=== PATIENT | male | born 1960 | race Caucasian/White ===

== ENCOUNTER 2019-11-08 16:23 | Outpatient (CLI) | payer OTHER, SELFPAY ==
--- NOTE | ~2019-11-08 | XR_ITS ---
XR wrist RT min 3V DATE: 11/08/2019 16:44 INDICATION: Pop, pain at radial aspect of wrist TECHNIQUE: 4 views COMPARISON: 02/17/2017 right hand FINDINGS: Osteoarthritic change at the interphalangeal joint of the first digit. There is minimal osteoarthritis at the first carpometacarpal joint. There is a small linear lucency along the radial aspect of the distal radial epiphysis, not evident o n 02/17/2017 right hand radiograph, which may represent a small cortical avulsion fracture of undeterm ined age. Otherwise no fracture or dislocation, periosteal reaction or bone destruction or chondrocalcinosis. N o erosive change is evident. IMPRESSION: Possible small cortical avulsion fracture of undetermined age of the lateral epiphyseal a danae of the distal radius; recommend clinical correlation for point tenderness Osteoarthritis Reviewed, dictated and finalized at location B. IMPRESSION: Possible small cortical avulsion fracture of undetermined age of th e lateral epiphyseal area of the distal radius; recommend clinical correlation for point tenderness Osteoarthritis
== END 2019-11-08 16:24 | disposition home or self-care (01) ==
PROVIDERS: PCP Family Medicine; Visit Provider Nurse Practitioner Family
DX: M25.531 Pain in right wrist (principal)
CPT/HCPCS: 73110

== ENCOUNTER 2020-06-08 09:46 | Outpatient (CLI) | payer OTHER, MEDICAID, SELFPAY ==
--- NOTE | ~2020-06-08 | XR_ITS ---
EXAMINATION:XR_CERV2-3V_CR DATE: 06/08/2020 10:21 INDICATION: Cervical radiculopathy TECHNIQUE: AP, lateral, lateral swimmers and odontoid views of the cervical spine are provided. COMPARISON: None FINDINGS: Alignment is normal. The odontoid is intact. No fracture is identified. There is mild loss of intervertebral disc space height at C5-6 and C6-7. Prevertebral soft tissues are normal. Small deg enerative osteophytes project from the anterior endplates of multiple vertebral bodies. There is mild facet osteoarthritis. IMPRESSION: 1. Mild cervical spondylosis without acute findings. Reviewed, dictated and finalized at location A.
--- NOTE | ~2020-06-08 | XR_ITS ---
XR shoulder RT min 2V DATE: 06/08/2020 10:20 INDICATION: Right shoulder pain for 2 days TECHNIQUE: 4 views COMPARISON: None FINDINGS: 2 anchor devices overlie the right humeral head. No fracture or dislocation, periosteal reaction or bone destruction. There is mild joint space narrowing and spurring at the acromioclavicular joint. IMPRESSION: Mild degenerative change at the right acromioclavicular joint Postoperative change of the right humeral head Reviewed, dictated and finalized at location A.
== END 2020-06-08 09:47 | disposition home or self-care (01) ==
LOC: CHSIMG 09:48
PROVIDERS: PCP Family Medicine; Visit Provider Family Medicine
DX: M25.511 Pain in right shoulder (principal); M54.12 Radiculopathy, cervical region
CPT/HCPCS: 72040; 73030

== ENCOUNTER 2020-09-12 06:18 | Emergency (ER) | payer BC, SELFPAY ==
--- NOTE | ~2020-09-12 | CT_ITS ---
EXAMINATION: CT soft tissue neck w con EXAM DATE: 09/12/2020 07:51 INDICATION: RT neck pain and pressure w/inability to turn neck L or R x3days. Dysphagia. TECHNIQUE: Spiral CT of the neck was performed following intravenous injection of 75 mL Omnipaque 350 . Axial, coronal and sagittal images were reviewed. The dose-length product (DLP) for this examinat ion was 603.88 mGy-cm. The exposure was tailored according to patient size (auto mA exposure control ), and iterative reconstruction (ASIR) was used as additional dose reduction technique. There is no prior study for comparison. FINDINGS: There is a 5 mm nodule in the right lung apex on image 37. The thyroid gland is unremarkab le. The submandibular and parotid glands are symmetric. There is no cervical lymphadenopathy. Th ere are no masses identified. The superior mediastinum is unremarkable. The airway is unremarkab le. Parapharyngeal and pre-glottic fat planes are preserved. There is mild bilateral carotid bulb arterial sclerosis without stenosis. The orbits are unremarkable. Mild ethmoid mucoperiosteal thi ckening, no sinus air-fluid levels. Mastoid air cells are well aerated. There is moderate lower cerv ical disc disease and overall mild to moderate cervical arthropathy. No endplate erosive change or pa raspinal abnormality identified. Prevertebral soft tissue and pre-dens space are within normal limits . There are no areas of abnormal enhancement on the post contrast images. IMPRESSION: Incidental right upper lobe nodule; consider 6-12 month follow-up low-dose chest CT. No a cute neck findings. Reviewed, dictated and finalized at location B. LOADER IMPRESSION: Incidental right upper lobe nodule; consider 6-12 month follow-up l ow-dose chest CT. No acute neck findings.
[2020-09-12 06:37] VITALS: BP 150/89; PULSE 84; RESP 18; TEMP 36.6; O2SAT 100
--- NOTE | 2020-09-12 06:38 | ED.NECK ---
HPI - Neck Pain/Injury General Chief Complaint: Neck Pain/Injury Stated Complaint: pain in neck Time Seen by Provider: 09/12/20 06:39 Source: patient and RN notes reviewed Mode of arrival: ambulatory Limitations: no limitations History of Present Illness complaint: neck pain Onset (ago): day(s) (2) Place: home Severity: moderate and intermittent Quality: dull, aching and spasming Duration: intermittent Relieving factors: none Exacerbating factors: movement of neck and swallowing Associated symptoms: difficulty swallowing Treatments prior to arrival: none Related Data Home Medications Medication Instructions Recorded Confirmed losartan-hydrochlorothiazide 1 tablet PO DAILY 09/12/20 09/12/20 naproxen 500 mg PO PRN PRN 09/12/20 09/12/20 tramadol 50 mg PO PRN PRN 09/12/20 09/12/20 Allergies Allergy/AdvReac Type Severity Reaction Status Date / Time Penicillins Allergy Unknown Unknown Verified 05/24/20 11:00 [facility] Past Medical History Medical History Carpal tunnel syndrome of left wrist De Quervain's tenosynovitis, left Extensor tenosynovitis of right wrist Family History Family History Father Diabetes mellitus Social History Social History Smoking status: Current every day smoker Tobacco type: e-cigarettes/vaping Additional smoking assessment comments: One pack per day times 30 years has been vaping for the last 5 years. Alcohol intake: current Drinks per week: 15 Substance use: never Exam Const: General: healthy appearing and no acute distress Nutritional Appearance: well nourished and obese centrally obese Orientation/consciousness: patient oriented x3 HENMT: Head: normal to inspection Ears: external ears normal and TM's normal bilaterally General nose exam: Normal external nose present Face and sinus: normal facial exam Mouth: Yes Normal oral and palatal mucosa present and Yes lip normal Throat: posterior oropharynx normal Eyes: Conjunctivae: conjunctivae normal Pupils: Equal, round and reactive pupils present EOM: EOMs intact bilaterally Neck: Neck: no meningeal signs and lymphadenopathy right anterior cervical Resp: Effort & Inspection: normal respiratory effort Auscultation: clear to auscultation bilaterally Cardio: Rate: regular rate Rhythm: regular rhythm GI: GI Palp: Yes Soft to palpation Auscultation: normal bowel sounds Back/Spine/Pelvis: Cervical Spine: cervical muscular tenderness and pain with cervical ROM Thoracic/Lumbar Spine: thoraco-lumbar ROM normal Other: patient has stiffness to his neck he is able to move to the left but it causes pain not able to turn his head to the right. Pain with palpation on the right soft tissue around the posterior auricle. Skin: General skin exam: normal color Rashes: no rashes Neuro: General: patient oriented x3 and moves all extremities Speech: normal speech Gait exam (Neuro): Normal gait present Extrem: General: normal to inspection and no clubbing, cyanosis or edema Psych: Appearance: grossly normal and well kempt Mental Status: mental status grossly normal Affect: normal affect Attitude: cooperative Thought content: Yes Normal thought content present Course Vital Signs Vital signs: Vital Signs Temperature 36.6 C 09/12/20 06:37 Pulse Rate 84 09/12/20 06:37 Respiratory Rate 18 09/12/20 06:37 Blood Pressure 150/89 H 09/12/20 06:37 Pulse Oximetry 100 09/12/20 06:37 Temperature 36.6 C 09/12/20 06:37 Pulse Rate 70 09/12/20 08:47 Respiratory Rate 18 09/12/20 08:47 Blood Pressure 122/62 09/12/20 08:47 Pulse Oximetry 96 09/12/20 08:47 MDM - Neck Pain/Injury Lab Data Result diagrams: 09/12/20 07:01 09/12/20 07:01 Labs: Lab Results 09/12/20 09/12/20 09/12/20 Range/Units 07:01 07:01 07:01 WBC
[2020-09-12 07:07] LABS: Basophils Absolute Auto 0.06 K/mm3 (0.00-0.10); Basophils Percent Auto 0.7 % (0.0-1.0); Eosinophils Absolute Auto 0.34 K/mm3 (0.02-0.50); Eosinophils Percent Auto 4.2 % (1.0-6.0); Hematocrit 42.7 % (40.0-54.0); Hemoglobin 14.5 g/dL (14.0-18.0); Immature Granulocyte Absolute 0.05 K/mm3 (0.00-0.00); Immature Granulocyte Percent A 0.6 % (0.0-0.0); Lymphocytes Absolute Auto 1.61 K/mm3 (1.10-4.50); Lymphocytes Percent Auto 19.7 % (18.0-42.0); Mean Corpuscular Hemoglobin 32.1 pg (27.0-31.0); Mean Corpuscular Volume 94.5 fL (78.0-102.0); Mean Platelet Volume 9.7 fl (8.7-11.0); Monocytes Absolute Auto 0.82 K/mm3 (0.10-0.90); Neutrophils Absolute Auto 5.3 K/mm3 (1.7-7.2); Neutrophils Percent Auto 64.8 % (50.0-70.0); Platelet Count Result 228 K/mm3 (150-420); Red Blood Count 4.52 M/mm3 (4.70-6.10); White Blood Count 8.2 K/mm3 (4.8-10.8)
[2020-09-12 07:18] LABS: Anion Gap 6 mmol/L (8-16); Blood Urea Nitrogen 16 mg/dL (7-18); Calcium 8.7 mg/dL (8.5-10.1); Carbon Dioxide 30 mmol/L (21-32); Chloride 102 mmol/L (98-108); Estimated CRCL calculation 98 ml/min; Estimated Glomerular Filt Rate > 60; Glucose 110 mg/dL (70-99); Osmolality Calculated 288 mOsm/kg (285-295); Potassium 4.1 mmol/L (3.5-5.1); Sodium 138 mmol/L (136-145)
[2020-09-12 07:20] LABS: CRP 1.7 mg/dL (0.0-0.9)
[2020-09-12] MEDS: ORPHENADRINE CITRATE 100 MG TABLET.ER PO (08:13)
[2020-09-12] MEDS: KETOROLAC 30 MG/ML VIAL (*BKC) IV PUSH (08:14)
[2020-09-12] MEDS: DEXAMETHASONE SOD PHOS INJ 4 MG/ML VIAL 10 MG IV PUSH (08:14)
[2020-09-12 08:47] VITALS: BP 122/62; PULSE 70; RESP 18; O2SAT 96
--- NOTE | 2020-09-12 09:22 | ED.NECK ---
HPI - Neck Pain/Injury General Chief Complaint: Neck Pain/Injury Stated Complaint: pain in neck Time Seen by Provider: 09/12/20 06:39 Source: patient Mode of arrival: ambulatory Limitations: no limitations History of Present Illness HPI Narrative: Patient comes in with neck pain ongoing for two days. This has been associated with increased sharp pain when turning his neck to the right, and it seems to have started after sleeping nn his neck funny he says. Pain is moderately severe, ongoing, made worse with any movement, and decreases after not moving the neck. Rest decreases the discomfort which is sharp. MD complaint: neck pain Place: home Severity: moderate and intermittent Quality: sharp, aching and spasming Relieving factors: none Exacerbating factors: movement of neck and swallowing Associated symptoms: difficulty swallowing Treatments prior to arrival: acetaminophen Related Data Home Medications Medication Instructions Recorded Confirmed losartan-hydrochlorothiazide 1 tablet PO DAILY 09/12/20 09/12/20 naproxen 500 mg PO PRN PRN 09/12/20 09/12/20 tramadol 50 mg PO PRN PRN 09/12/20 09/12/20 Allergies Allergy/AdvReac Type Severity Reaction Status Date / Time Penicillins Allergy Unknown Unknown Verified 05/24/20 11:00 Review of Systems Constitutional: Constitutional: Reports no additional constitutional complaints Eyes: Eyes: Reports no additional eye complaints ENT: Reports system reviewed and no additional complaints, except as documented Cardiovascular: Cardiovascular: Reports no additional cardiovascular complaints Respiratory: Respiratory: Reports no additional respiratory complaints Gastrointestinal: Gastrointestinal: Reports no additional gastrointestinal complaints Genitourinary: Genitourinary: Reports no additional male genitourinary complaints Musculoskeletal: Musculoskeletal: Reports no additional musculoskeletal complaints Integumentary/Breasts: Skin/Breast: Reports system reviewed and no additional complaints, except as docu Neurologic: Reports system reviewed and no additional complaints, except as documented Psychiatric: Psychiatric: Reports no additional psychiatric complaints Endocrine: Endocrine: Reports no additional endocrine complaints Hematologic/Lymphatic: Hematologic/Lymphatic: Reports no additional hematologic/lymphatic complaints Allergic/Immunologic: Allergic/Immunologic: Reports no additional allergic/immunologic complaints [facility] Past Medical History Medical History Carpal tunnel syndrome of left wrist De Quervain's tenosynovitis, left Extensor tenosynovitis of right wrist Family History Family History Father Diabetes mellitus Social History Social History Smoking status: Current every day smoker Tobacco type: e-cigarettes/vaping Additional smoking assessment comments: One pack per day times 30 years has been vaping for the last 5 years. Alcohol intake: current Drinks per week: 15 Substance use: never Exam Const: Orientation/consciousness: patient oriented x3 HENMT: Head: normal to inspection Ears: external ears normal and TM's normal bilaterally General nose exam: Normal external nose present and Normal nares present Face and sinus: normal facial exam Other: He appears tight on the right side of his neck with the muscles there. He has no adenopathy that I can feel, just tight muscles. Eyes: Conjunctivae: conjunctivae normal Neck: Neck: normal visual inspection, no lymphadenopathy and no meningeal signs Other: tight neck muscles especially on right side. Chest: Chest palpation & inspection: normal inspection of the chest Resp: Effort & Inspection: normal respiratory effort Auscultation: clear to auscultation bilaterally and diminished lung sounds Cardio: Rate: regular rate Rhythm: regul
== END 2020-09-12 09:45 | disposition home or self-care (01) ==
PROVIDERS: Emergency Medicine; Emergency Provider Emergency Medicine; PCP Family Medicine
DX: M54.2 Cervicalgia (principal)
CPT/HCPCS: 36415; 70491; 80048; 85025; 86140; 96374; 96375; 99283; 99284; A9270; J1100; J1885; Q9965; Q9967

== ENCOUNTER 2021-05-26 15:54 | Emergency (ER) | payer BC, SELFPAY ==
--- NOTE | ~2021-05-26 | CT_ITS ---
EXAMINATION: CTA chest abdomen pelvis DATE: 05/26/2021 17:35 INDICATION: Abdominal aortic aneurysm presenting with chest and abdominal pain. TECHNIQUE: Computed tomographic angiography (CTA) of the chest, abdomen and pelvis was performed with 100 mL Omnipaque-350 intravenous contrast. Additional 3D reconstructions utilizing rotating maximum intensity projection (MIP) were performed. Automated exposure control and iterative reconstruction te chnique were employed. The dose-length product was 1984.49 mGy-cm. COMPARISON: None FINDINGS: Chest: Linear discoid atelectasis at the lingula and left lower lobe. 5-6 mm nodule in the right lower lobe and 5 mm segments spherical nodule along the left major fissure the lateral most likely an intrafissu ral lymph node. No pneumonia, pulmonary edema, pleural effusion or pneumothorax. Although not perform ed as a dedicated pulmonary embolism protocol there is relatively good contrast desiccation of the pu lmonary arteries demonstrating no pulmonary embolism. Heart size is normal. No pericardial effusion. Thoracic aorta is normal in caliber with no dissection. No pathologically enlarged thoracic lymphaden opathy. Mild wall thickening at the distal esophagus which could represent mild esophagitis. Mild tho racic spondylosis. With chronic appearing mild anterior wedging at T11 and T12. Abdomen and pelvis: Cholecystectomy clips at the gallbladder fossa. Diffuse hepatic steatosis. Spleen, pancreas, bilatera l adrenal glands and right kidney are normal. 1 mm and 2-3 mm nonobstructing stones at lower pole popeye yces of the left kidney. Bladder is normal. Prostatomegaly measuring 5.8 x 4.3 cm. Small amount of no nhemodynamically significant calcified atherosclerosis of the normal caliber abdominal aorta and bila teral iliac arteries. No dissection. Bowels including the appendix are normal. No free intraperitonea l gas or fluid. No pathologically enlarged abdominal or pelvic lymphadenopathy. Mild lumbar dextrocur vature with mild spondylosis. IMPRESSION: 1. Normal caliber aorta with no dissection. 2. Mild wall thickening at the distal esophagus which could be seen with esophagitis due to either in fection or reflux. 3. Diffuse hepatic steatosis. 4. Nonobstructing left nephrolithiasis. 5. Prostatomegaly. Reviewed, dictated and finalized at location A. IMPRESSION: 1. Normal caliber aorta with no dissection. 2. Mild wall thickening at the distal esophagus which could be seen with esopha gitis due to either infection or reflux. 3. Diffuse hepatic steatosis. 4. Nonobstructing left nephrolithiasis. 5. Prostatomegaly.
[2021-05-26 16:00] VITALS: BP 179/88; PULSE 70; RESP 20; TEMP 36.4; O2SAT 97
--- NOTE | 2021-05-26 16:22 | ECG_ITS ---
Measurements Intervals [place] Rate: 70 P: 74 NE: 214 QRS: -5 QRSD: 107 T: 24 QT: 353 QTc: 381 Interpretive Statements SINUS RHYTHM WITH FIRST DEGREE AV BLOCK INCOMPLETE RIGHT BUNDLE BRANCH BLOCK BASELINE ARTIFACT- I, II, III, AVR, AVF ABNORMAL ECG Electronically Signed On 05-28-2021 6:56:47 CDT by Alvaro Bravo D.O.
--- NOTE | 2021-05-26 16:25 | ED.GENADULT ---
HPI - General Adult General Chief complaint: Abdominal Pain Stated complaint: chest pain Source: patient Mode of arrival: ambulatory Limitations: no limitations History of Present Illness HPI narrative: Ozzy is a 60M with a PMH of HTN, Afib, cholelithiasis s/p surgery 20 years ago, tobacco abuse and an AAA that presented to the ED with epigastric pain that is worse with inspiration and radiates to this back. It started insidiously yesterday and has not gone away. It is associated with lightheadedness but no syncope, nausea but no vomiting, and is worse with sitting up and activity. No trauma reported to the area. H ehas not been able to eat or drink much today. Related Data Home Medications Medication Instructions Recorded Confirmed tramadol 50 mg PO PRN PRN 09/12/20 05/26/21 dabigatran etexilate [Pradaxa] 150 mg PO DAILY 05/26/21 05/26/21 metoprolol tartrate 25 mg PO BID 05/26/21 05/26/21 Allergies Allergy/AdvReac Type Severity Reaction Status Date / Time Penicillins Allergy Unknown Unknown Verified 05/24/20 11:00 Review of Systems Constitutional: Constitutional: Reports no additional constitutional complaints Eyes: Eyes: Reports no additional eye complaints ENT: Reports system reviewed and no additional complaints, except as documented Cardiovascular: Cardiovascular: Reports no additional cardiovascular complaints Respiratory: Respiratory: Reports as per HPI, Denies cough and Reports dyspnea Gastrointestinal: Gastrointestinal: Reports no additional gastrointestinal complaints Genitourinary: Genitourinary: Reports no additional male genitourinary complaints Musculoskeletal: Musculoskeletal: Reports no additional musculoskeletal complaints Integumentary/Breasts: Skin/Breast: Reports system reviewed and no additional complaints, except as docu Neurologic: Reports system reviewed and no additional complaints, except as documented Psychiatric: Psychiatric: Reports no additional psychiatric complaints Endocrine: Endocrine: Reports no additional endocrine complaints Hematologic/Lymphatic: Hematologic/Lymphatic: Reports no additional hematologic/lymphatic complaints Allergic/Immunologic: Allergic/Immunologic: Reports no additional allergic/immunologic complaints [facility] Past Medical History Medical History Carpal tunnel syndrome of left wrist De Quervain's tenosynovitis, left Extensor tenosynovitis of right wrist Family History Family History Father Diabetes mellitus Social History Social History Smoking status: Current every day smoker Tobacco type: e-cigarettes/vaping Additional smoking assessment comments: One pack per day times 30 years has been vaping for the last 5 years. Alcohol intake: current Drinks per week: 15 Substance use: never Exam Const: General: no acute distress and alert Orientation/consciousness: patient oriented x3 Limitations: No altered mental status HENMT: Head: normal to inspection Other: atraumatic Eyes: Conjunctivae: conjunctivae normal Pupils: Equal, round and reactive pupils present Neck: Neck: normal visual inspection Chest: Chest palpation & inspection: normal inspection of the chest Resp: Effort & Inspection: normal respiratory effort Auscultation: clear to auscultation bilaterally Cardio: Rate: regular rate Rhythm: regular rhythm Heart sounds: no murmurs GI: Inspection: non-distended GI Palp: Yes Soft to palpation, No Guarding due to palpation present (GI) and No Rigid due to palpation Other: TTP in the epigastric region Back/Spine/Pelvis: Back: no CVA tenderness Skin: General skin exam: normal color Rashes: no rashes Neuro: General: patient oriented x3 and moves all extremities Extrem: General: normal to inspection Psych: Mental Status: mental status grossly normal
[2021-05-26] MEDS: ONDANSETRON INJ 4 MG/2 ML VIAL IV PUSH (16:40)
[2021-05-26] MEDS: MORPHINE SULFATE (*CRX) 4 MG/ML INJ IV PUSH (16:41)
[2021-05-26 16:56] LABS: Basophils Absolute Auto 0.03 K/mm3 (0.00-0.10); Basophils Percent Auto 0.5 % (0.0-1.0); Eosinophils Absolute Auto 0.13 K/mm3 (0.02-0.50); Eosinophils Percent Auto 2.4 % (1.0-6.0); Hematocrit 44.1 % (40.0-54.0); Hemoglobin 14.9 g/dL (14.0-18.0); Immature Granulocyte Absolute 0.05 K/mm3 (0.00-0.00); Immature Granulocyte Percent A 0.9 % (0.0-0.0); Lymphocytes Absolute Auto 0.83 K/mm3 (1.10-4.50); Lymphocytes Percent Auto 15.1 % (18.0-42.0); Mean Corpuscular HGB Conc 33.8 g/dL (32.0-36.0); Mean Corpuscular Hemoglobin 32.5 pg (27.0-31.0); Mean Corpuscular Volume 96.3 fL (78.0-102.0); Mean Platelet Volume 9.5 fl (8.7-11.0); Monocytes Absolute Auto 0.38 K/mm3 (0.10-0.90); Monocytes Percent Auto 6.9 % (2.0-11.0); Neutrophils Absolute Auto 4.1 K/mm3 (1.7-7.2); Neutrophils Percent Auto 74.2 % (50.0-70.0); Platelet Count Result 189 K/mm3 (150-420); Red Blood Count 4.58 M/mm3 (4.70-6.10); Red Cell Distribution Width 12.6 % (11.6-14.4); White Blood Count 5.5 K/mm3 (4.8-10.8)
[2021-05-26 17:01] LABS: Add Urine Microscopic? YES; Appearance Urine Clear (Clear); Bilirubin Urine 1+ (Negative); Blood Urine Negative (Negative); Color Urine Yellow (Yellow); Glucose Urine UA Negative (Negative); Ketones Urine Negative (Negative); Leukocyte Esterase Ur Negative (Negative); Nitrate Urine Negative (Negative); Protein Urine Negative (Negative); pH Urine 5.5 (5.0-8.0)
[2021-05-26 17:08] LABS: INR 1.1; Prothrombin Time 11.9 Seconds (9.50-12.10)
[2021-05-26 17:10] LABS: Bacteria Urine None seen /hpf; RBC Urine None seen /hpf (0-2); WBC Urine None seen /hpf (0-3)
[2021-05-26 17:11] LABS: SARS-CoV-2 Ag Negative (Negative); Squamous Epithelial Cell Urine None seen /hpf (Few)
[2021-05-26 17:13] LABS: D Dimer 0.56 mg/L (0.19-0.50); Lactic Acid Reflex 1.5 mmol/L (0.4-2.0)
[2021-05-26 17:15] LABS: Alanine Aminotransferase 874 U/L (16-63); Albumin Level 3.9 g/dL (3.4-5.0); Alkaline Phosphatase 174 U/L (46-116); Anion Gap 10 mmol/L (8-16); Aspartate Amino Transferase 726 U/L (15-37); Bilirubin,Total 2.8 mg/dL (0.00-1.00); Blood Urea Nitrogen 12 mg/dL (7-18); Calcium 8.9 mg/dL (8.5-10.1); Carbon Dioxide 30 mmol/L (21-32); Chloride 103 mmol/L (98-108); Estimated CRCL calculation 94 ml/min; Estimated Glomerular Filt Rate > 60; Glucose 116 mg/dL (70-99); Lipase 119 U/L (73-393); Osmolality Calculated 296 mOsm/kg (285-295); Potassium 3.7 mmol/L (3.5-5.1); Sodium 143 mmol/L (136-145); Total Protein 7.6 g/dL (6.4-8.2)
[2021-05-26 17:18] LABS: Troponin I 4.4 ng/L (0.00-60.4)
--- NOTE | 2021-05-26 17:21 | PC.NURSE ---
Pt to CT via wheelchair.
[2021-05-26 17:37] VITALS: BP 155/79; PULSE 65; RESP 16; O2SAT 96
--- NOTE | 2021-05-26 18:23 | PC.NURSE ---
erp on phone with [employer] floor supervisor requesting consult with gastroenterology.
--- NOTE | 2021-05-26 18:38 | PC.NURSE ---
Jaden solar installation crew supervisor returned call and states current gastroenterology doc on-call does not do ERCP. Dr. Sanchez on phone with [facility]'s access line requesting gastroenterology consult.
[2021-05-26] MEDS: diphenhydrAMINE HCl INJ 50 MG/ML VIAL 25 MG IV PUSH (18:46)
[2021-05-26] MEDS: CIPROFLOXACIN 400 MG/D5W 200ML 200 ML 200 MG IVPB (18:48)
--- NOTE | 2021-05-26 19:10 | PC.NURSE ---
KIAN Sanchez notified real estate underwriter [facility] in [place], [facility] in [place], and [facility], are unable to accept pt at this time.
--- NOTE | 2021-05-26 19:29 | PC.NURSE ---
KIAN Sanchez notified sports writer, [facility], [facility], [place], and [facility] are all unable to accept the pt at this time. Pt and family notified.
[2021-05-26] MEDS: metroNIDAZOLE 500 MG/ISO 100ML 500 MG/100 ML BAG 100 MG IVPB (19:50)
[2021-05-26 20:10] VITALS: BP 129/69; PULSE 70; RESP 18; O2SAT 95
[2021-05-26] MEDS: SODIUM CHLORIDE 0.9% IV 500 ML 999 ML IV CONT (20:53)
[2021-05-26 21:27] VITALS: BP 139/91; PULSE 71; RESP 16; TEMP 36.6; O2SAT 97
--- NOTE | 2021-05-26 21:34 | PC.NURSE ---
Report called to HORTENSIA Person at [place] who will be taking over care.
--- NOTE | 2021-05-26 21:36 | PC.NURSE ---
[facility] called for pt transport.
[2021-05-26 21:48] VITALS: BP 139/91; PULSE 71; RESP 16; TEMP 36.6; O2SAT 97
== END 2021-05-26 21:59 | disposition short-term general hospital (02) ==
PROVIDERS: Emergency Provider Family Medicine; PCP Family Medicine
DX: R10.11 Right upper quadrant pain (principal); R74.01 Elevation of levels of liver transaminase levels; Z20.822 Contact with and (suspected) exposure to COVID-19
CPT/HCPCS: 36415; 71275; 74174; 80053; 81001; 83605; 83690; 84484; 85025; 85380; 85610; 86850; 86900; 86901; 87426; 93005; 96361; 96365; 96366; 96368; 96375; 99285; C9803; J0744; J1200; J2270; J2405; J7040; Q9967

== ENCOUNTER 2023-12-02 12:16 | Outpatient (CLI) | payer MEDICARE, MEDICAID, SELFPAY ==
--- NOTE | ~2023-12-02 | XR_ITS ---
EXAMINATION: XR foot RT min 3V DATE: 12/02/2023 12:40 INDICATION: Right foot pain. TECHNIQUE: 4 views of right foot were obtained. COMPARISON: None. FINDINGS: Bone alignment is normal. No fracture. There is mild osteoarthritis of first metatarsophala ngeal joint and some of the interphalangeal joints. There are enthesophytes at the posterior and plan tar aspects of calcaneal tuberosity. IMPRESSION: 1. Mild polyarticular osteoarthritis. Reviewed, dictated and finalized at location A.
== END 2023-12-02 12:17 | disposition home or self-care (01) ==
LOC: CHSIMG 12:22
PROVIDERS: PCP Family Medicine; Visit Provider Family Medicine
DX: M79.671 Pain in right foot (principal); M19.071 Primary osteoarthritis, right ankle and foot
CPT/HCPCS: 73630

== ENCOUNTER 2024-09-22 08:46 | Outpatient (CLI) | payer MEDICARE, MEDICAID, SELFPAY ==
--- NOTE | ~2024-09-22 | XR_ITS ---
EXAMINATION: XR chest 2V DATE: 09/22/2024 09:08 INDICATION: Shortness of breath TECHNIQUE: frontal and lateral views of the chest were obtained. COMPARISON: Chest CT dated 05/26/2021 FINDINGS: No focal airspace opacities, pulmonary edema, pleural effusion or pneumothorax. The cardiomediastinal silhouette is normal. Suture anchors at the right humeral head likely related to prior rotator cuff repair. IMPRESSION: 1. No acute cardiopulmonary disease. Reviewed, dictated and finalized at location A. OR MECHANICAL TECHNICIAN
[2024-09-22 09:05] LABS: Basophils Absolute Auto 0.06 K/mm3 (0.00-0.10); Basophils Percent Auto 0.8 % (0.0-1.0); Eosinophils Absolute Auto 0.19 K/mm3 (0.02-0.50); Eosinophils Percent Auto 2.5 % (1.0-6.0); Hematocrit 44.3 % (37.0-46.0); Hemoglobin 14.7 g/dL (12.4-15.3); Immature Granulocyte Absolute 0.06 K/mm3 (0.00-0.00); Immature Granulocyte Percent A 0.8 % (0.0-0.0); Lymphocytes Absolute Auto 2.04 K/mm3 (1.10-4.50); Lymphocytes Percent Auto 26.9 % (18.0-42.0); Mean Corpuscular HGB Conc 33.2 g/dL (32-36); Mean Corpuscular Hemoglobin 31.5 pg (27.0-31.0); Mean Corpuscular Volume 94.9 fL (78.0-102.0); Mean Platelet Volume 9.5 fl (8.7-11.0); Monocytes Absolute Auto 0.58 K/mm3 (0.10-0.90); Monocytes Percent Auto 7.7 % (2.0-11.0); Neutrophils Absolute Auto 4.64 K/mm3 (1.70-7.20); Neutrophils Percent Auto 61.3 % (50.0-70.0); Platelet Count Result 231 K/mm3 (150-420); Red Blood Count 4.67 M/mm3 (4.70-6.10); Red Cell Distribution Width 13.2 % (11.6-14.4); White Blood Count 7.6 K/mm3 (4.8-10.8)
[2024-09-22 09:46] LABS: Alanine Aminotransferase 47 U/L (16-63); Albumin Level 3.7 g/dL (3.4-5.0); Alkaline Phosphatase 68 U/L (46-116); Anion Gap 10 mmol/L (4-12); Aspartate Amino Transferase 20 U/L (15-37); Bilirubin,Total 0.3 mg/dL (0.00-1.00); Blood Urea Nitrogen 18 mg/dL (7-18); Calcium 8.8 mg/dL (8.5-10.1); Carbon Dioxide 28 mmol/L (21-32); Chloride 107 mmol/L (98-108); Creatine Kinase 55 U/L (39-308); Creatine Kinase MB < 0.50 ng/mL (0.00-5.00); Estimated Glomerular Filt Rate 51; Glucose 114 mg/dL (70-99); NT Pro B Type Natriuretic Pept 2189 pg/mL (0-125); Osmolality Calculated 302 mOsm/kg (285-295); Potassium 4.1 mmol/L (3.5-5.1); Sodium 145 mmol/L (136-145); Total Protein 7.1 g/dL (6.4-8.2); Troponin I 9.4 ng/L (0.00-60.4)
--- OUTSIDE RECORDS SUMMARY | 2024-09-23 22:02 | XMS_ITS ---
Author Organization Unknown Address [address] [place] [phone] Phone Care Team Providers Care Interlocking Machine Operator Name Role Phone SUSANNA THOMAS Attending Unavailable MINO TIM Primary Unavailable Immunization Immunization Date Status Additional Notes Code Code System Tdap 01/12/2022 Completed 115 CVX Influenza, high-dose, trivalent, PF 06/26/2022 Completed 135 CVX Influenza, split virus, trivalent, PF 07/12/2015 Completed 140 CVX Influenza, split virus, trivalent, preservative 08/05/2012 Completed 141 CVX Influenza, split virus, quadrivalent, PF 05/30/2018 Completed 150 CVX Influenza, split virus, quadrivalent, PF 09/07/2019 Completed 150 CVX Influenza, split virus, quadrivalent, PF 06/08/2020 Completed 150 CVX Influenza, split virus, quadrivalent, PF 06/14/2023 Completed 150 CVX Influenza, recombinant, quadrivalent, PF 08/01/2021 Completed 185 CVX zoster recombinant 01/12/2022 Completed 187 CVX zoster recombinant 07/03/2022 Completed 187 CVX COVID-19, mRNA, LNP-S, PF, 1 00 mcg/0.5mL dose or 50 mcg/0.25mL dose 11/03/2020 Completed 207 CVX COVID-19, mRNA, LNP-S, PF, 1 00 mcg/0.5mL dose or 50 mcg/0.25mL dose 12/01/2020 Completed 207 CVX COVID-19, mRNA, LNP-S, PF, 1 00 mcg/0.5mL dose or 50 mcg/0.25mL dose 08/01/2021 Completed 207 CVX COVID-19, mRNA, LNP-S, PF, 1 00 mcg/0.5mL dose or 50 mcg/0.25mL dose 01/12/2022 Completed 207 CVX COVID-19, mRNA, LNP-S, bivalent, PF, 50 mcg/0.5 mL or 25mcg/0.25 mL dose 07/03/2022 Completed 229 CVX RSV, recombinant, protein subunit RSVpreF, adjuvant reconstituted, 0.5 mL, PF 10/08/2023 Completed 303 CV X COVID-19, mRNA, LNP-S, PF, 5 0 mcg/0.5 mL 06/14/2023 Completed 312 CVX Social History Type Status Start Date End Date Code Code Syst em Smoking History Former smoker 2748133 SNOMED CT Sex Male Medications Medication Start Date End Date Route Frequency Dose Code Code System Medication Instructions Home Meds Amitriptyline 25MG Oral Tablet 07/22/2022 11/10/2023 ORAL AT BEDTIME 25 MILLIGRAMS 095258 RxNorm TAKE 25 MILLIGRAMS ORAL AT BEDTIME Escitalopram 10MG Oral Tablet 07/22/2022 11/10/2023 ORAL ONCE A DAY 10 MILLIGRAMS 749316 RxNorm TAKE 10 MILLIGRAMS ORAL ONCE A DAY Ezetimibe 10 MG Oral Tablet 07/22/2022 Unknown ORAL ONCE A DAY 10 MG 794228 RxNorm TAKE 10 MG ORAL ONCE A DAY Famotidine 20MG Oral Tablet 07/22/2022 Unknown ORAL AT BEDTIME 20 MILLIGRAMS 774080 RxNorm TAKE 20 MILLIGRAMS ORAL AT BEDTIME HYDROcodone bitartrate-júnior taminophen 7.5MG-325MG Oral Tablet 07/22/2022 11/10/2023 ORAL NEEDED EVERY 4 HOURS 1 unit(s) 515611 RxNorm TAKE 1 EACH ORAL NEEDED EVERY 4 HOURS Lisinopril 20MG Oral Tablet 07/22/2022 Unknown ORAL ONCE A DAY 20 MILLIGRAMS 204030 RxNorm TAKE 20 MILLIGRAMS ORAL ONCE A DAY Metoprolol Succinate ER 100MG Oral Tablet, Extended Release 07/22/2022 11/10/2023 ORAL ONCE A DAY 200 MILLIGRAMS RxNorm TAKE 200 MILLIGRAMS ORAL ONCE A DAY Pradaxa 150MG Oral Capsule 07/22/2022 Unknown ORAL TWICE A DAY 150 MILLIGRAMS 9669841 RxNorm TAKE 150 MILLIGRAMS ORAL TWICE A DAY Triamcinolone Acetonide 0.1% Topical application Cream 07/22/2022 11/10/2023 TOPIC AL APPLI CATIO N NEEDED 1 unit(s) 0212824 RxNorm 1 EACH TOPICAL APPLICATION NEEDED Allopurinol 100MG Oral Tablet 11/20/2023 Unknown ORAL ONCE A DAY 100 MILLIGRAMS 795609 RxNorm TAKE 100 MILLIGRAMS ORAL ONCE A DAY Furosemide 20MG Oral Tablet 11/20/2023 Unknown ORAL ONCE A DAY 20 MILLIGRAMS 225530 RxNorm TAKE 20 MILLIGRAMS ORAL ONCE A DAY Metoprolol Succinate ER 100MG Oral Tablet, Extended Release 11/20/2023 Unknown ORAL ONCE A DAY 100 MILLIGRAMS RxNorm TAKE 100 MILLIGRAMS ORAL ONCE A DAY hydrOXYzine HCl 25MG Oral Tablet 11/20/2023 Unknown ORAL ONCE A DAY 25 MILLIGRAMS 751755 RxNorm TAKE 25 MILLIGRAMS ORAL ONCE A DAY Hospital Discharge Instructions Should you have any questions prior to discharge, please contact a member of your healthcare team. If you have left the hospital and have any questions, please contact your primary care physician. Reason For Referral No Data Found Allergies and Adverse Reactions Allergy Substance Reaction Severity Start Date Concern Status Co de Code System PENICILLIN Hives (SNOMED-CT: 287894034) Active Plan of Treatment EGD/Colonoscopy 07/22/2022 Colonoscopy 11/20/2023 MRI Abdomen WWO Contrast (51565) 2023 MRI Pelvis WWO Contrast (16335) 024 Encounters Encounter Diagnosis Start Date Code Code Sys tem Paroxysmal atrial fibrillation 07/15/2023 SNOMED-CT Personal Care Team Section Performer Name Performer Role Active Date Inactive TIM Sanchez PCP - Primary care physician
--- OUTSIDE RECORDS SUMMARY | 2024-09-23 22:02 | XMS_ITS ---
Author Organization Unknown Address [address] [place] [phone] Phone Care Team Providers Care Tufter Operator Name Role Phone JOANN Le Attending Unavailable CARMEN NEAL CRNA Unavailable MINO TIM Primary Unavailable Immunization Immunization [...] Code Syst em Smoking History Former smoker 3505408 SNOMED CT Sex Male Vital Signs Vital Sign Value Unit [place] Value [place] Unit Date/Time Recent/Initial? Code Code System Body Mass Index 34.72 kg/m2 11/20/2023 07:57 Most Recent 55015 -5 LOINC Body Mass Index 34.02 kg/m2 11/10/2023 10:39 Initial 36836 -5 LOINC Systolic Blood Pressure 109 mm[Hg] 11/20/2023 08:00 Initial 8480- 6 LOINC Diastolic Blood Pressure 61 mm[Hg] 11/20/2023 08:00 Initial 8462- 4 LOINC Body Surface Area 2.43 m2 11/20/2023 07:57 Most Recent 3140- 1 LOINC Body Surface Area 2.51 m2 11/10/2023 10:39 Initial 3140- 1 LOINC Height 182.880 0 cm 72.00 in 11/20/2023 07:57 Most Recent 8302- 2 LOINC Height 187.960 0 cm 74.00 in 11/10/2023 10:39 Initial 8302- 2 LOINC O2 Saturation 96 % 2023 08:00 Initial 37203 -5 LOINC Pulse 56.0 /min 11/20/2023 08:00 Initial 8867- 4 LOINC Respiration 12 /min 11/20/19 08:00 Initial 9279- 1 LOINC Temperature 36.6 Anamika 97.8 F 11/20/19 08:00 Initial 8310- 5 LOINC Weight 116.12 kg 256.00 lbs 11/20/2023 07:57 Most Recent 02985 -7 LOINC Weight 120.20 kg 265.00 lbs 11/10/2023 10:39 Initial 69586 -7 [facility] Medications Medication Start Date End Date Route Frequency Dose Code Code System Medication Instructions Home Meds Ezetimibe 10 MG Oral Tablet 07/22/2022 Unknown ORAL ONCE A DAY 10 MG 087272 RxNorm TAKE 10 MG ORAL ONCE A DAY Famotidine 20MG Oral Tablet 07/22/2022 Unknown ORAL AT BEDTIME 20 MILLIGRAMS 318358 RxNorm TAKE 20 MILLIGRAMS ORAL AT BEDTIME Lisinopril 20MG Oral Tablet 07/22/2022 Unknown ORAL ONCE A DAY 20 MILLIGRAMS 118463 RxNorm TAKE 20 MILLIGRAMS ORAL ONCE A DAY Pradaxa 150MG Oral Capsule 07/22/2022 Unknown ORAL TWICE A DAY 150 MILLIGRAMS 8587353 RxNorm TAKE 150 MILLIGRAMS ORAL TWICE A DAY Allopurinol 100MG Oral Tablet 11/20/2023 Unknown ORAL ONCE A DAY 100 MILLIGRAMS 884214 RxNorm TAKE 100 MILLIGRAMS ORAL ONCE A DAY Furosemide 20MG Oral Tablet 11/20/2023 Unknown ORAL ONCE A DAY 20 MILLIGRAMS 650686 RxNorm TAKE 20 MILLIGRAMS ORAL ONCE A DAY Metoprolol Succinate ER 100MG Oral Tablet, Extended Release 11/20/2023 Unknown ORAL ONCE A DAY 100 MILLIGRAMS RxNorm TAKE 100 MILLIGRAMS ORAL ONCE A DAY hydrOXYzine HCl 25MG Oral Tablet 11/20/2023 Unknown ORAL ONCE A DAY 25 MILLIGRAMS 665731 RxNorm TAKE 25 MILLIGRAMS ORAL ONCE A DAY Hospital Discharge Instructions Should you have any questions prior to discharge, please contact a member of your healthcare team. If you have left the hospital and have any questions, please contact your primary care physician. Reason For Referral No Data Found Procedures Procedure Name Date Status Code Code Syste m Colonoscopy, flexible; with biopsy, single or multiple 11/20/2023 completed 27809 CPT Anesthesia for lower intesti nal endoscopic procedures, endoscope introduce 11/20/2023 completed 20000 CPT History of tonsillectomy completed [id number] SNOMEDCT ERCP completed 240440587 SNOMEDCT Allergies and Adverse Reactions Allergy Substance Reaction Severity Start Date Concern Status Co de Code System PENICILLIN Hives (SNOMED-CT: 824231996) Active Plan of Treatment EGD/Colonoscopy 07/22/2022 Colonoscopy 11/20/2023 MRI Abdomen WWO Contrast (94962) 2023 MRI Pelvis WWO Contrast (71144) 024 Encounters Encounter Diagnosis Start Date Code Code Sys tem Encounter for screening for malignant neoplasm of colo n 11/20/2023 SNOMED-CT Personal Care Team Section Performer Name Performer Role Active Date Inactive TIM Sanchez PCP - Primary care physician
--- OUTSIDE RECORDS SUMMARY | 2024-09-23 22:02 | XMS_ITS ---
Author Organization Unknown Address [address] [place] [address] [phone] Phone Care Team Providers Care Network Operations Lead Name Role Phone BRAULIO Cai Attending Unavailable MINO TIM Primary Unavailable Immunization [...] 0 mcg/0.5 mL 06/14/2023 Completed 312 CVX Results STOOL FECAL FAT - QUALITATIV E - Collect Date/Time: 03/15/2024 15:00 [facility] ID: [id number] [address] [place] [address], [phone] LOINC: 36755-8 Test Value Unit Reference Range Code Code System Flag Fats, Neutral Normal 84204-8 LOINC Fats, Total Increased 43667-9 LOINC PANCREATIC ELASTASE FECAL (R EF) - Collect Date/Time: 03/15/2024 15:00 [facility] ID: [id number] [address] [place] [address], [id number] LOINC: 82274-8 Test Value Unit Reference Range Code Code System Flag Pancreatic Elastase,Fecal 718 >200 62243-7 LOINC CALPROTECTIN FECAL REF - Col lect Date/Time: 03/15/2024 15:00 [facility] ID: [id number] [address] [place] [address], [phone] LOINC: 69687-7 Test Value Unit Reference Range Code Code System Flag Calprotectin, Fecal 255 0-120 69809-3 LOINC H TSH / REFLEX FT4 - Collect D ate/Time: 03/15/2024 09:48 [facility] ID: [id number] [address] [place] [address], [id number] LOINC: Test Value Unit Reference Range Code Code System Flag TSH 2.340 uIU/L L=0.470 H=4.680 95741-9 LOINC CELIAC DISEASE PANEL(REF) - Collect Date/Time: 03/15/2024 09:48 [facility] ID: [id number] [address] [place], [place], [phone] LOINC: Test Value Unit Reference Range Code Code System Flag Immunoglobulin A, Qn,Serum 378 61-437 2458-8 LOINC Deamidated Gliadin Abs,IgA 7 0-19 02426-7 LOINC Deamidated Gliadin Abs,IgG 2 0-19 62372-7 LOINC t-Transglutaminase (tTG)IgA <2 0-3 51853-0 LOIN C t-Transglutaminase (tTG)IgG <2 0-5 72146-5 LOIN C CRP NON SPECIFIC - Collect D ate/Time: 03/15/2024 09:48 [facility] ID: [id number] [address] [place] [address], [phone] LOINC: 1987-12 Test Value Unit Reference Range Code Code System Flag CRP-NON SPECIFIC < 5.0 mg/L L=0.0 H=10.0 1987-12 LOINC Social History Type Status Start Date End Date Code Code Syst em Smoking History Former smoker 0152627 SNOMED CT Sex Male Medications Medication Start Date End Date Route Frequency Dose Code Code System Medication Instructions Home Meds Ezetimibe 10 MG Oral Tablet 07/22/2022 Unknown ORAL ONCE A DAY 10 MG 375932 RxNorm TAKE 10 MG ORAL ONCE A DAY Famotidine 20MG Oral Tablet 07/22/2022 Unknown ORAL AT BEDTIME 20 MILLIGRAMS 237732 RxNorm TAKE 20 MILLIGRAMS ORAL AT BEDTIME Lisinopril 20MG Oral Tablet 07/22/2022 Unknown ORAL ONCE A DAY 20 MILLIGRAMS 313309 RxNorm TAKE 20 MILLIGRAMS ORAL ONCE A DAY Pradaxa 150MG Oral Capsule 07/22/2022 Unknown ORAL TWICE A DAY 150 MILLIGRAMS 5225767 RxNorm TAKE 150 MILLIGRAMS ORAL TWICE A DAY Allopurinol 100MG Oral Tablet 11/20/2023 Unknown ORAL ONCE A DAY 100 MILLIGRAMS 560830 RxNorm TAKE 100 MILLIGRAMS ORAL ONCE A DAY Furosemide 20MG Oral Tablet 11/20/2023 Unknown ORAL ONCE A DAY 20 MILLIGRAMS 454241 RxNorm TAKE 20 MILLIGRAMS ORAL ONCE A DAY Metoprolol Succinate ER 100MG Oral Tablet, Extended Release 11/20/2023 Unknown ORAL ONCE A DAY 100 MILLIGRAMS RxNorm TAKE 100 MILLIGRAMS ORAL ONCE A DAY hydrOXYzine HCl 25MG Oral Tablet 11/20/2023 Unknown ORAL ONCE A DAY 25 MILLIGRAMS 056607 RxNorm TAKE 25 MILLIGRAMS ORAL ONCE A [...] Co de Code System PENICILLIN Hives (SNOMED-CT: 220138124) Active Plan of Treatment EGD/Colonoscopy 07/22/2022 Colonoscopy 11/20/2023 MRI Abdomen WWO Contrast (04154) 2023 MRI Pelvis WWO Contrast (20707) 024 Encounters Encounter Diagnosis Start Date Code Code Sys tem Diarrhea, unspecified 03/15/2024 [facility] -CT Personal Care Team Section Performer Name Performer Role Active Date Inactive TIM Sanchez PCP - Primary care physician
--- OUTSIDE RECORDS SUMMARY | 2024-09-23 22:02 | XMS_ITS ---
Author Organization Unknown Address [address] [place] [phone] Phone Care Team Providers Care Palm Gatherer Name Role Phone SUSANNA THOMAS Attending Unavailable [...] Code Syst em Smoking History Former smoker 2356465 SNOMED CT Sex Male Medications Medication Start Date End Date Route Frequency Dose Code Code System Medication Instructions Home Meds Ezetimibe 10 MG Oral Tablet 07/22/2022 Unknown ORAL ONCE A DAY 10 MG 661932 RxNorm TAKE 10 MG ORAL ONCE A DAY Famotidine 20MG Oral Tablet 07/22/2022 Unknown ORAL AT BEDTIME 20 MILLIGRAMS 829262 RxNorm TAKE 20 MILLIGRAMS ORAL AT BEDTIME Lisinopril 20MG Oral Tablet 07/22/2022 Unknown ORAL ONCE A DAY 20 MILLIGRAMS 417366 RxNorm TAKE 20 MILLIGRAMS ORAL ONCE A DAY Pradaxa 150MG Oral Capsule 07/22/2022 Unknown ORAL TWICE A DAY 150 MILLIGRAMS 2974894 RxNorm TAKE 150 MILLIGRAMS ORAL TWICE A DAY Allopurinol 100MG Oral Tablet 11/20/2023 Unknown ORAL ONCE A DAY 100 MILLIGRAMS 320565 RxNorm TAKE 100 MILLIGRAMS ORAL ONCE A DAY Furosemide 20MG Oral Tablet 11/20/2023 Unknown ORAL ONCE A DAY 20 MILLIGRAMS 755810 RxNorm TAKE 20 MILLIGRAMS ORAL ONCE A DAY Metoprolol Succinate ER 100MG Oral Tablet, Extended Release 11/20/2023 Unknown ORAL ONCE A DAY 100 MILLIGRAMS RxNorm TAKE 100 MILLIGRAMS ORAL ONCE A DAY hydrOXYzine HCl 25MG Oral Tablet 11/20/2023 Unknown ORAL ONCE A DAY 25 MILLIGRAMS 562787 RxNorm TAKE 25 MILLIGRAMS ORAL ONCE A [...] Co de Code System PENICILLIN Hives (SNOMED-CT: 225699829) Active Plan of Treatment EGD/Colonoscopy 07/22/2022 Colonoscopy 11/20/2023 MRI Abdomen WWO Contrast (38303) 2023 MRI Pelvis WWO Contrast (83214) 024 Encounters Encounter Diagnosis Start Date Code Code Sys tem Paroxysmal atrial fibrillation 03/09/2024 SNOMED-CT Personal Care Team Section Performer Name Performer Role Active Date Inactive TIM Sanchez PCP - Primary care physician
--- OUTSIDE RECORDS SUMMARY | 2024-09-23 22:03 | XMS_ITS ---
Author Organization Unknown Address [address] [place] [phone] Phone Care Team Providers Care Landscape Horticulture Instructor Name Role Phone BRAULIO Cai Attending Unavailable [...] mcg/0.5 mL 06/14/2023 Completed 312 CVX Results BUN/CREAT - Collect Date/Oscar e: 05/18/2024 08:39 [facility] ID: [id number] [address] [place], [place], [phone] LOINC: 3097-3 Test Value Unit Reference Range Code Code System Flag BUN 17 mg/dL L=7 H=20 3094-0 LOINC CREATININE 1.10 mg/dL L=0.66 H=1.25 2160-0 LOINC AGE 63 86325-3 LOINC eGFR NON-AFR 71 ml/min eGFR AFR AMER 86 ml/min MRI ABDOMEN W+WO CONTRAST - Completed: 05/18/2024 09:16 LOINC: EXAM DESCRIPTION: MRI ABDOMEN W+WO CONTRAST; MRI PELVIS W+WO CONTRAST REASON FOR STUDY: MR Enterogram. +/-6 months of intensified G.I. s/s, notably diarrhea 4-5 times per day, on the daily; 30-yr dx of IBS, which the pt states has never been well-controlled or mitigated; C-diff infection c.30 yrs ago at time of cholecystectomy and pt attests he's never been the same, since. No traumatic incidents noted. Duration: 6 months of intensified G.I. s/s. Previous Surgery: CHOLECYSTECTOMY, c.1995. TECHNIQUE: MRI of the abdomen and pelvis performed without and with intravenous contrast according to the enterography protocol. All images stored on PACS. CONTRAST TYPE/DOSE: 15ml (PROHANCE) / 1250ml (NeuLumEX) / GLUCAGON, ABOVE. of PROHANCE (IV) / NeuLumEX (ORAL) / GLUCAGON (.5mg SUB-Q / .5mg IV) injected via RIGHT DORSAL HAND VEIN W/24GA ANGIOCATH. COMPARISON: None available FINDINGS: GI: Distension of the small bowel is satisfactory . No abnormal wall or fold thickening. No skip lesions. No hyperenhancing or hypoenhancing segments. Appendix is normal. . No evidence of contrast extravasation into the bowel lumen. Scattered colonic diverticuli are seen without evidence of diverticulitis. Strictures: No strictures. Fistulas: No fistulas. Abscesses: No abscess. PERITONEUM: No ascites or free air. No hernia. RETROPERITONEUM: No mass or adenopathy. ABDOMEN/PELVIS: LOWER CHEST: No significant pulmonary abnormalities. No effusion. LIVER: Normal size. No mass. No cysts. GALLBLADDER: Surgically absent BILE DUCTS: No intrahepatic or extrahepatic ductal dilatation. SPLEEN: Normal size. No focal lesions. PANCREAS: No masses. No significant calcifications. No adjacent inflammation or peripancreatic fluid collections. Pancreatic duct not dilated. ADRENALS: Normal. KIDNEYS/URINARY TRACT: No solid masses. No cysts. No stones. No hydronephrosis or hydroureter. Symmetric enhancement. Normal bladder. REPRODUCTIVE: No significant abnormality. VASCULATURE: No abdominal aortic aneurysm. MUSCULOSKELETAL: No acute findings. OTHER: No other abnormality. IMPRESSION: No evidence of active inflammatory bowel disease. THIS IS AN ELECTRONICALLY VERIFIED FINAL REPORT 05/19/2024 9:18 AM - Electronically signed by Asael Jesus M.D. JA: RAFAELA Report ID: [id number] Reading Location: [id number] MRI PELVIS W+WO CONTRAST - C ompleted: 05/18/2024 09:17 LOINC: EXAM DESCRIPTION: MRI ABDOMEN W+WO CONTRAST; MRI PELVIS W+WO CONTRAST REASON FOR STUDY: MR Enterogram. +/-6 months of intensified G.I. s/s, notably diarrhea 4-5 times per day, on the daily; 30-yr dx of IBS, which the pt states has never been well-controlled or mitigated; C-diff infection c.30 yrs ago at time of cholecystectomy and pt attests he's never been the same, since. No traumatic incidents noted. Duration: 6 months of intensified G.I. s/s. Previous Surgery: CHOLECYSTECTOMY, c.1996. TECHNIQUE: MRI of the abdomen and pelvis performed without and with intravenous contrast according to the enterography protocol. All images stored on PACS. CONTRAST TYPE/DOSE: 15ml (PROHANCE) / 1250ml (NeuLumEX) / GLUCAGON, ABOVE. of PROHANCE (IV) / NeuLumEX (ORAL) / GLUCAGON (.5mg SUB-Q / .5mg IV) injected via RIGHT DORSAL HAND VEIN W/24GA ANGIOCATH. COMPARISON: None available FINDINGS: GI: Distension of the small bowel is satisfactory . No abnormal wall or fold thickening. No skip lesions. No hyperenhancing or hypoenhancing segments. Appendix is normal. . No evidence of contrast extravasation into the bowel lumen. Scattered colonic diverticuli are seen without evidence of diverticulitis. Strictures: No strictures. Fistulas: No fistulas. Abscesses: No abscess. PERITONEUM: No ascites or free air. No hernia. RETROPERITONEUM: No mass or adenopathy. ABDOMEN/PELVIS: LOWER CHEST: No significant pulmonary abnormalities. No effusion. LIVER: Normal size. No mass. No cysts. GALLBLADDER: Surgically absent BILE DUCTS: No intrahepatic or extrahepatic ductal dilatation. SPLEEN: Normal size. No focal lesions. PANCREAS: No masses. No significant calcifications. No adjacent inflammation or peripancreatic fluid collections. Pancreatic duct not dilated. ADRENALS: Normal. KIDNEYS/URINARY TRACT: No solid masses. No cysts. No stones. No hydronephrosis or hydroureter. Symmetric enhancement. Normal bladder. REPRODUCTIVE: No significant abnormality. VASCULATURE: No abdominal aortic aneurysm. MUSCULOSKELETAL: No acute findings. OTHER: No other abnormality. IMPRESSION: No evidence of active inflammatory bowel disease. THIS IS AN ELECTRONICALLY VERIFIED FINAL REPORT 05/19/2024 9:18 AM - Electronically signed by Asael Jesus M.D. JA: RAFAELA Report ID: [id number] Reading Location: [id number] Social History Type Status Start Date End Date Code Code Syst em Smoking History Former smoker 3856757 SNOMED CT Sex Male Medications Medication Start Date End Date Route Frequency Dose Code Code System Medication Instructions Home Meds Ezetimibe 10 MG Oral Tablet 07/22/2022 Unknown ORAL ONCE A DAY 10 MG 697583 RxNorm TAKE 10 MG ORAL ONCE A DAY Famotidine 20MG Oral Tablet 07/22/2022 Unknown ORAL AT BEDTIME 20 MILLIGRAMS 864815 RxNorm TAKE 20 MILLIGRAMS ORAL AT BEDTIME Lisinopril 20MG Oral Tablet 07/22/2022 Unknown ORAL ONCE A DAY 20 MILLIGRAMS 433301 RxNorm TAKE 20 MILLIGRAMS ORAL ONCE A DAY Pradaxa 150MG Oral Capsule 07/22/2022 Unknown ORAL TWICE A DAY 150 MILLIGRAMS 6034521 RxNorm TAKE 150 MILLIGRAMS ORAL TWICE A DAY Allopurinol 100MG Oral Tablet 11/20/2023 Unknown ORAL ONCE A DAY 100 MILLIGRAMS 149888 RxNorm TAKE 100 MILLIGRAMS ORAL ONCE A DAY Furosemide 20MG Oral Tablet 11/20/2023 Unknown ORAL ONCE A DAY 20 MILLIGRAMS 436506 RxNorm TAKE 20 MILLIGRAMS ORAL ONCE A DAY Metoprolol Succinate ER 100MG Oral Tablet, Extended Release 11/20/2023 Unknown ORAL ONCE A DAY 100 MILLIGRAMS RxNorm TAKE 100 MILLIGRAMS ORAL ONCE A DAY hydrOXYzine HCl 25MG Oral Tablet 11/20/2023 Unknown ORAL ONCE A DAY 25 MILLIGRAMS 908735 RxNorm TAKE 25 MILLIGRAMS ORAL ONCE A [...] Co de Code System PENICILLIN Hives (SNOMED-CT: 858213204) Active Plan of Treatment EGD/Colonoscopy 07/22/2022 Colonoscopy 11/20/2023 MRI Abdomen WWO Contrast (23761) 2023 MRI Pelvis WWO Contrast (89497) 024 Encounters Encounter Diagnosis Start Date Code Code Sys tem Diarrhea, unspecified 05/18/2024 SNOMED -CT Personal Care Team Section Performer Name Performer Role Active Date Inactive TIM Sanchez PCP - Primary care physician Imaging Narrative Notes
== END 2024-09-22 08:47 | disposition home or self-care (01) ==
PROVIDERS: PCP Family Medicine; Visit Provider Family Medicine
DX: I48.91 Unspecified atrial fibrillation (principal); R06.02 Shortness of breath
CPT/HCPCS: 36415; 71046; 80053; 82550; 82553; 83880; 84484; 85025

== ENCOUNTER 2025-03-11 09:51 | Outpatient (CLI) | payer MEDICARE, MEDICAID, SELFPAY ==
--- NOTE | ~2025-03-11 | CT_ITS ---
CT Scan of the Chest without Contrast: Clinical Indication: Lung cancer screening, nicotine dependence Technique: Contiguous sections were acquired throughout the chest without intravenous contrast. Dose reduction technique was used on this scan by utilizing automated exposure control and iterative recon struction technique. The dose-length product (DLP) was 486.40 mGy-cm. COMPARISON: 05/26/2021 Findings: There is no evidence of any significant mediastinal, hilar or axillary lymphadenopathy. Coronary janene ry calcifications are present. There is no evidence of pleural or pericardial effusion. Stable 5 mm posterior right upper lobe pulmonary nodule (axial image 39). Stable 6 mm right lower lob e pulmonary nodule (axial image 82). Images through the upper abdomen reveal no abnormalities. Impression: Lung RADS 2: Benign appearance. [address] advised. Reviewed, dictated and finalized at [facility]. Impression: Lung RADS 2: Benign appearance. [address] advised.
--- OUTSIDE RECORDS SUMMARY | 2025-03-11 09:55 | XMS_ITS | Clinical Summary ---
Author Organization [facility] Address [address] [place] [address] Care Team Providers Care Database Dba Name Role Phone Robles Disla MD Primary Care Provider [phone] Source Comments [facility],non-owned Affiliates and Associated Physician Practices is amultiple site organization consisting of ambulatory clinics and hospital sitesin [place], [place]. This disclosure is being madepursuant to the Care Everywhere program and may not contain all information available regarding this patient. Last updated 18.[facility] [employer] Allergies Active Allergy Reactions Criticality Noted Date Comments Penicillins Rash Medium 05/27/2021 Medications * Be aware that medications may not be up to date on this document. Alwaysverify current medications with the patient. metoprolol succinate XL 24hr (TOPROL XL) 50 MG tablet Take 75 mg by mouth 2 times daily Active Multiple Vitamins-Minera ls (MULTI VITAMIN/MINERAL S) TABS Take 1 tablet by mouth once daily Active loratadine (CLARITIN) 10 MG tablet Take 10 mg by mouth once daily Active oxyCODONE, immediate release, (ROXICODONE) 5 MG tablet Take 1 (one) tablet by mouth every 6 hours as needed 12 tablet 1 Active dabigatran (PRADAXA) 150 MG capsule Take 1 (one) capsule by mouth 2 times daily 1 Active famotidine (PEPCID) 20 MG tablet Take 1 (one) tablet by mouth 2 times daily 60 tablet 1 Active chlordiazePOXID E (LIBRIUM) 25 MG capsule Take 1 (one) capsule by mouth 3 times daily as needed for Anxiety or Agitation 15 capsule 09/29/202 1 Active Active Problems Problem Noted Date Diagnosed Date Alcohol-induced acute pancreatitis 05/26/2021 Abdominal pain, RUQ (right upper quadrant) 05/26 Elevated liver enzymes Coagulopathy Social History Tobacco Use Types Packs/Day Years Used Date Smoking Tobacco: Former Cigarettes 1 30 1 - 2013 Smokeless Tobacco: Never Alcohol Use Standard Drinks/Week Comments Yes 4 (1 standard drink = 0.6 oz pur e alcohol) 4-8 12oz beers 5-6 days a week Sex and Gender Information Value Date Recorded Sex Assigned at Not on file Legal Sex Male 9:07 PM CDT Gender Identity Not on file Sexual Orientation Not on file Last Filed Vital Signs Vital Sign Reading Time Taken Comments Blood Pressure 115/73 07/05/2021 8:10 AM CDT Pulse 56 07/05/2021 7:40 AM CDT Temperature 36.3 C (97.4 F) 07/05/2021 6:42 AM CDT Respiratory Rate 11 07/05/2021 8:10 AM CDT Oxygen Saturation 93% 07/05/2021 8: 10 AM CDT Inhaled Oxygen Concentration - - Weight 125.7 kg (277 lb 3.2 oz) 07/05/2021 6:48 AM CDT Height 188 cm (6' 2) 07/05/2021 6:48 AM CDT Body Mass Index 35.59 07/05/2021 6:48 AM CDT Plan of Treatment Health Maintenance Due Date Last Done Comments COLOGUARD (AGES 45-75) - COLON CA SCREENING 1958 COLON MONITORING 1958 COLONOSCOPY - COLON CA SCREENING 1958 CT COLONOGRAPHY - COLON CA SCREENING 1958 Colorectal Cancer Screening 1958 FIT - COLON CA SCREENING 1958 FLEX SIG - COLON CA SCREENING 1958 LIPID TESTING 1958 DTAP/TDAP/TD VACCINES (1 - Tdap) 1977 LUNG CANCER SCREENING 2008 PNEUMOCOCCAL VACCINE 50+ (1 of 1 - PCV) 2008 ZOSTER VACCINE (1 of 2) 2008 AAA SCREENING 2023 COVID-19 VACCINE (1 - 2023- season) 2024 SCREENING FOR DIABETES 05/30/2024 , 05/29/2021, 05/28/2021, Additional history exists DEPRESSION SCREENING 09/01/2024 INFLUENZA VACCINE (#1) 2025 Respiratory Syncytial Virus (RSV) Vaccine Pt: or over 60 yrs (1 - 1-dose 75+ series) 2033 HEPATITIS C SCREENING Completed 05/27/2021 HEPATITIS B VACCINE Aged Out No longe r eligible based on patient's age to complete this topic HIB VACCINE Aged Out No longer eligi ble based on patient's age to complete this topic HPV VACCINE Aged Out No longer eligi ble based on patient's age to complete this topic MENINGOCOCCAL (Group B) VACCINE SHARED DECISION-MAKING Aged Out No longer eligible based on patient's age to complete this topic MENINGOCOCCAL GROUPS A/C/Y/W VACCINE Aged Out No longer eligible based on patient's age to complete this topic Medical Devices Implanted Type Area Agent Broker Device Identifier Shelf Expiration Date Model / Serial / Lot Stent Biliary 10fr 5cm Ddnl Bnd Preld Implanted:Qty: 1 on 05/28/2021 by Gary Timmons MD at [facility] 02/27/2023 [id number] / / [id number] Procedures Procedure Name Priority Date/Time Associated Diagnosis Comments COMPREHENSIVE METABOLIC PANEL AM Draw 05/30/2021 5:16 AM CDT HEPATITIS C ANTIBODY Routine 05/27/2021 12:15 AM CDT from Last 3 Months or Most Recently Relevant to Health Maintenance Results * (ABNORMAL) COMPREHENSIVE METABOLIC PANEL (05/30/2021 5:16 AM CDT) Pathologist [facility] Glucose 98 70 - 105 mg/dL 05/30/2021 6:08 AM CDT [facility] Sodium 141 136 - 145 mmol/L 05/30/2021 6:08 AM CDT [facility] Potassium 3.7 3.5 - 5.1 mmol/L 05/30/2021 6:08 AM CDT [facility] Chloride 109(H) 98 - 107 mmol/L 05/30/2021 6:08 AM CDT [facility] CO2 23 23 - 31 mmol/L 05/30/2021 6:08 AM [facility] Calcium 8.7 8.4 - 10.4 mg/dL 05/30/2021 6:08 AM [facility] Anion Gap 9 8 - 18 mmol/L 05/30/2021 6:08 AM [facility] BUN 11 8.4 - 25.7 mg/dL 05/30/2021 6:08 AM T -[facility] Creatinine 0.80 0.72 - 1.25 mg/dL 05/30/2021 6:08 AM T -[facility] Alkaline Phosphatase 146 40 - 150 U/L 05/30/2021 6:08 AM T -[facility] ALT 356(H) 0 - 61 U/L 05/30/2021 6:08 AM T [facility] AST 121(H) 5 - 34 U/L 05/30/2021 6:08 AM T -[facility] Protein Total 6.0(L) 6.4 - 8.3 gm/dL 05/30/2021 6:08 AM T -[facility] Albumin 3.1(L) 3.2 - 4.6 gm/dL 05/30/2021 6:08 AM T -[facility] Bilirubin Total 1.5(H) 0.2 - 1.2 mg/dL 05/30/2021 6:08 AM T -[facility] eGFR by MDRD >60 >60 mL/min/1.7 3m2 05/30/2021 6:08 AM T -[facility] eGFR by MDRD >60 >60 mL/min/1.7 3m2 05/30/2021 6:08 AM T -[facility] Blood BLOOD SPECIMEN / Unknown Lab Venipuncture / Unknown 05/30/2021 5:16 AM CDT 05/30/2021 5:42 AM CDT us Zafar Horn MD LAB - CHEMISTRY ORDERABLES Fin al Result [facility] [address] [place] [address] * HEPATITIS C ANTIBODY (05/27/2021 12:15 AM CDT) HCV Antibody Screen Non Reactive Non Reactive 05/27/2021 7:23 PM CDT [facility] Blood BLOOD SPECIMEN / Unknown Lab Venipuncture / Unknown 05/27/2021 12:15 AM CDT 05/27/2021 12:17 AM CDT Narrative [facility] - 05/27/2021 7:23 PM CDT Non Reactive - Antibodies to Hepatitis C virus (HCV) were not detected, result does not exclude early acute HCV infection. Davion Mcguire MD LAB - CHEMISTRY ORDERABLES Final Result [facility] [address] [place] [address] from Last 3 Months or Most Recently Relevant to Health Maintenance Insurance [facility] MEDICAID Advance Directives * Full Code (Latest Code Status on File) Date Activated Date Inactivated Comments 05/27/2021 12:06 AM 05/30/2021 12:06 PM Care Teams Database Dba Relationship Specialty Start Date End Date Robles Disla MD [address] [place] [phone] PCP - General Family Medicine 05/26/21
--- OUTSIDE RECORDS SUMMARY | 2025-03-11 09:56 | XMS_ITS | Data Portability ---
Author Organization [facility], [address] [facility] Address [address] [place] [address] Care Team Providers Care Podopediatrician Name Role Phone [facility] Front End Engineer Assessment Encounter Date Assessment Date Assessment LastModified by Organization Details LastModified Time 03/09/2024 03/09/2024 SUBJECTIVE: Mr. Demario Castillo, 63-year-old male, with paroxysmal atrial fibrillation, hypertension, and heart failure with preserved ejection fraction, comes in for followup visit. Since the last visit, he has done well. He had 1 episode of symptomatic recurrent atrial fibrillation in December after drinking alcohol. At that time, he took flecainide and his palpitations improved after an hour. He has not had any further episodes. He continues to drink, but he is trying to cut down. He denies dyspnea with daily activities. He denies any chest pain, chest tightness, or chest pressure. He denies dizziness, lightheadedness or any episode of passing out. He has been having issues with diarrhea and dizziness, which he described as vertigo from Meniere s disease. Recent blood work is unremarkable from cardiac standpoint. He is tolerating Pradaxa. Twelve lead EKG today shows sinus rhythm with incomplete right bundle branch block and early repolarization. nv PREVIOUS CARDIAC WORKUP: 1. Seven day monitor recently showed sinus rhythm with rare PACs and PVCs. He had 5 episodes of nonsustained ventricular tachycardia with longest one lasting for 7 beats. Patient-reported symptoms correlated with sinus rhythm. No a-fib was noted on the recent monitor. 2. Transthoracic echo, 01/16/2023, showed normal LV and RV function. His proximal ascending aorta was 3.5 cm. There was mild calcification of the aortic valve without aortic stenosis. He had mild concentric left ventricular hypertrophy. 3. CTA of chest in 2020. It did not show any evidence of aortic aneurysm. He did not have any coronary artery calcifications. 4. Visit to ER at [place] in December 2022. His proBNP was elevated at 1900. Chest x-ray was unremarkable. IMPRESSION: 63-year-old male, comes in for followup visit for paroxysmal atrial fibrillation, hypertension and heart failure with preserved ejection fraction. nv PLAN: 1. Paroxysmal atrial fibrillation. Since decreasing the amount of alcohol intake, he has had only 1 recurrence of atrial fibrillation. I would recommend that he should have complete abstinence from alcohol drinking. Recommend continuation of metoprolol succinate 100 mg p.o. daily, which has been decreased from 200 to 100 by his primary care physician. We will recommend flecainide 300 mg p.r.n. as needed for breakthrough episodes. Continue Pradaxa for stroke prevention. CHADSVASc risk score is at least 2. 2. Heart failure with preserved ejection fraction. He is doing well. He is euvolemic on exam. Continue current dose of Lasix. We may consider addition of SGLT2 inhibitors going forward. 3. Hypertension. Blood pressure is reasonably well controlled. No changes needed. Patient was counseled regarding lifestyle modification healthy diet, daily exercise and weight loss. Patient understood the care plan and voiced no concerns. Followup visit in a year. [email or web address] Not available 03/10/2024 08:40:00 10/12/2024 10/12/2024 SUBJECTIVE: Mr. Demario Castillo, 64-year-old male, comes in for followup visit for paroxysmal atrial fibrillation and heart failure with preserved ejection fraction. He says he was doing well a few weeks ago when he started having some cough, shortness of breath and was diagnosed with upper respiratory tract infection. He was seen by his primary care physician and was started on antibiotics and his Lasix dose was increased. At that time, he was in a-fib. He took flecainide 2 tablets and then subsequently in a day his a-fib converted back to sinus rhythm. Since then he has done well. Since the last visit, this is the only significant episode of a-fib. He is currently doing well. He is active, has been able to perform his daily activities. Denies dyspnea on exertion, chest pain, chest tightness, chest pressure. He denies orthopnea, PND or any recurrent palpitations. He has Meniere s disease and has vertigo from it. He had some diarrhea after he took 2 tablets of flecainide. Recent blood work is unremarkable from cardiac standpoint. His creatinine, electrolytes and hemoglobin is normal. Twelve lead EKG today shows sinus rhythm, incomplete right bundle branch block and early repolarization. EKG is unchanged from before. nv PREVIOUS CARDIAC WORKUP: 1. Seven day monitor recently showed sinus rhythm with rare PACs and PVCs. He had 5 episodes of nonsustained ventricular tachycardia with longest one lasting for 7 beats. Patient-reported symptoms correlated with sinus rhythm. No a-fib was noted on the recent monitor. 2. Transthoracic echo, 01/16/2023, showed normal LV and RV function. His proximal ascending aorta was 3.5 cm. There was mild calcification of the aortic valve without aortic stenosis. He had mild concentric left ventricular hypertrophy. 3. CTA of chest in 2020. It did not show any evidence of aortic aneurysm. He did not have any coronary artery calcifications. 4. Visit to ER at [place] in December 2022. His proBNP was elevated at 1900. Chest x-ray was unremarkable. IMPRESSION: 64-year-old male, comes in for followup visit for paroxysmal atrial fibrillation, hypertension and heart failure with preserved ejection fraction. nv PLAN: 1. Paroxysmal atrial fibrillation, currently in sinus rhythm. Since last visit he had only 1 significant recurrence of atrial fibrillation in the setting of upper respiratory tract infection. Recommend current management strategy. Keep him on Pradaxa 150 twice a day for stroke prevention. His CHADSVASc risk score is at least 2. Keep him on metoprolol succinate 100 mg p.o. daily as well. He is on p.r.n. flecainide. I told him he is supposed to take one 300 mg of flecainide and not 2 tablets. 2. Heart failure with preserved ejection fraction. He is euvolemic on exam. Continue current dose of Lasix 20 mg p.o. daily. We will add Jardiance 10 mg p.o. daily as well. 3. Hypertension. Blood pressure is reasonably well controlled. Continue current medications. Patient was counseled regarding lifestyle modification healthy diet, daily exercise and weight loss. Patient understood the care plan and voiced no concerns. Follow up in 6 months. [email or web address] Not available 10/13/2024 20:25:21 Plan of Treatment Reminders Order Date Submit Date Provider Last Modified By Organization Details Last Modified Time Details Appointments Establish ed Patient 10.EST 2024 11:10A M Dr. [facility] Not available Not available Not available Lab None recorded. Referral None recorded. Procedures None recorded. Surgeries None recorded. Imaging None recorded. Medication Orders Jardiance 10 mg tablet 2024 [address]25 [facility] [address] [place], [address], 10/14/2024 12:29:06 Patient TargetsNo targets recorded. Patient Instructions Encounter Date Encounter Id Patient Instructions Last Modified By Organization Details Last Modified Time 03/09/2024 [id number] patient follow u p phone call* - Heart/F.U apt- make sure pt has a 6 mo f.u (September 2024) [email or web address] Not available 07/26/2024 10:12:57 Reason for Referral None Reported. Results Created Date Observation Date Name Description Value Unit Range Abnormal Flag Note LastModifiedBy Organization Detail LastModifiedTime 04/15/20 24 02/11/2023 imagi ng/di agnos tic resul t No observ ation record ed. Not Available 04/15/2024 05:12:51 04/15/20 24 03/12/2023 imagi ng/di agnos tic resul t No observ ation record ed. Not Available 04/15/2024 05:12:57 11/05/1910/12/2024 elect mingo diogr am, routi ne ECG, 12 leads min No observ ation record ed. [email or web address] Not Available 2024 09:47:43 12/27/19 25 12/29/2020 imagi ng/di agnos tic resul t No observ ation record ed. [email or web address] Not Available 17:47:16 Result Notes None recorded. Problems Name Problem SNOMED Code Status Onset Date Resolution Date Notes Provider Name and Address Organization Details Recorded Time Paroxysmal atrial fibrillatio n 614748326 Active 2024 Sierra Calderon [facility] 5 20:24:59 Heart failure with normal ejection fraction 310737386 Active 2024 Sierra Calderon [facility] 5 20:25:11 Atrial fibrillatio n 00272303 Active 2023 Ann-Marie Robison [facility] 4 10:44:16 Dyspnea on exertion 91775960 Active 2023 Ann-Marie Robison [facility] 4 10:44:25 Aortic aneurysm 05607108 Active 2023 [facility] 4 14:34:56 Finding of right ventricle 432240190 Active 2023 enlarged [facility] 4 14:35:36 Hyperlipide genoveva 89579032 Active 2023 [facility] 4 14:35:49 Essential hypertensio n 45193100 Active 2023 Sierramary Calderon [facility] 5 20:25:15 Problem Notes None recorded. Medical Equipment None Reported. Allergies No known drug allergies Medications Name Sig Start Date Stop Date Status Note LastModified by Organization Details LastModified Time prednisone 10 mg tablet TAKE FOUR TABLETS BY MOUTH DAILY FOR 1 WEEK, THEN TAKE 3 TABS DAILY FOR 1 WEEK, THEN TAKE 2 TABS DAILY FOR 1 WEEK, THEN TAKE 1 TAB DAILY FOR 1 WEEK TAKE WITH FOOD active Not Available Not Available No t Available flecainide 150 mg tablet TAKE 2 TABLETS DAILY NEEDED. MAY TAKE EVERY 24 HOURS NEEDED FOR SYMPTOMS. 2023 active [facility]ST RX 11.14 .23 Not Available Not Available Not Available ondansetron HCl 8 mg tablet TAKE 1 TABLET BY MOUTH EVERY 8 HOURS NEEDED FOR NAUSEA active Not Available Not Available No t Available lisinopril 20 mg tablet TAKE 1 TABLET BY MOUTH ONCE DAILY active Not Available Not Available No t Available metoprolol succinate ER 100 mg tablet,exte nded release 24 hr TAKE 1 TABLET BY MOUTH ONCE DAILY active Not Available Not Available No t Available metronidazo le 500 mg tablet TAKE 1 TABLET BY MOUTH THREE TIMES DAILY FOR 10 DAYS active Not Available Not Available No t Available allopurinol 100 mg tablet TAKE 1 TABLET BY MOUTH ONCE DAILY active Not Available Not Available No t Available hydrocodone 10 mg-acetamin ophen 325 mg tablet TAKE 1 TABLET BY MOUTH EVERY 6 HOURS NEEDED FOR PAIN 03/09 completed Not Available Not Available Not Available alprazolam 0.5 mg tablet TAKE 1 TABLET BY MOUTH THREE TIMES DAILY 03/09 completed Not Available Not Available Not Available famotidine 20 mg tablet TAKE 1 TABLET BY MOUTH ONCE DAILY AT BEDTIME active Not Available Not Available No t Available dicyclomine 20 mg tablet TAKE 1 TABLET BY MOUTH THREE TIMES DAILY active Not Available Not Available No t Available indomethaci n 50 mg capsule TAKE 1 CAPSULE BY MOUTH TWICE DAILY WITH MEALS 03/09 completed Not Available Not Available Not Available furosemide 20 mg tablet Take 1 tablet by mouth once daily 2024 active Not Available Not Available Not Avai lable budesonide DR - ER 3 mg capsule,del ayed,extend ed release TAKE 2 CAPSULES BY MOUTH ONCE DAILY FOR 1 MONTH, THEN TAKE ONE A DAY active Not Available Not Available No t Available methylpredn isolone 4 mg tablets in a dose pack TAKE BY MOUTH DIRECTED ON INSIDE OF PACKAGE DIRECTED 03/09 completed Not Available Not Available Not Available diazepam 5 mg tablet TAKE ONE TABLET BY MOUTH 30 MINUTES BEFORE THE PROCEDURE . MAY REPEAT ONCE IF NECESSARY active Not Available Not Available No t Available hydroxyzine pamoate 25 mg capsule TAKE 1 TO 2 CAPSULES BY MOUTH THREE TIMES DAILY NEEDED FOR SEVERE ANXIETY active Not Available Not Available No t Available ezetimibe 10 mg tablet TAKE 1 TABLET BY MOUTH ONCE DAILY active Not Available Not Available No t Available dabigatran etexilate 150 mg capsule TAKE 1 CAPSULE BY MOUTH TWICE DAILY active Not Available Not Available No t Available Jardiance 10 mg tablet TAKE 1 TABLET BY MOUTH ONCE DAILY active Not Available Not Available No t Available Paxlovid 300 mg (150 mg x 2)-100 mg tablets in a dose pack TAKE 2 TABLETS (NIRMATRE LVIR) AND TAKE 1 TABLET (RITONAVI R) BY MOUTH TWICE A DAY FOR 5 DAYS 03/09 completed Not Available Not Available Not Available Vitals Date Recorded Heart rate Oxygen saturation Oxygen saturation in Arterial blood by Pulse oximetry Body weight Body mass index (BMI) Body height Systolic And Diastolic Provider Name and Address Organization Details Last Updated DateTime 5 69 /min 92 % 92 % 355926. 79 g 37.2 kg/m2 187.96 cm 134/82 mm[Hg] Penelope Martinez [facility] 5 13:04:01 Date Recorded Heart rate Oxygen saturation Oxygen saturation in Arterial blood by Pulse oximetry Body weight Systolic And Diastolic Provider Name and Address Organization Details Last Updated DateTime 4 64 /min 96 % 96 % 627847. 94 g 132/70 mm[Hg] Puja Swanson [facility] 4 12:53:04 Social History Question Answer Notes LastModified by Organizat ion Details LastModified Time E-cigarettes Or Vaporization Device? Uses Nicotine Containing Device [email or web address] Information not available 10/12/2024 Sex: Unknown Functional Status None recorded. Mental Status None recorded. Family History Nothing Reported. Medical History No medical history recorded. Past Encounters Encounter ID Performer Location Encounter Start Date Encounter Closed Date Diagnosis/Indication Diagnosis SNOMED-CT Code Diagnosis ICD10 Code Diagnosis Note [id number] Martha Heart MD [facility] [place] [address] [place] [address] 03/09/2024 12:25:20 03/15/2024 04:53:03 Atrial fibrillation 22803068 I48.91 [id number] Martha Heart MD [facility] [place] [place] [address] [place] [address] 10/12/2024 12:41:48 10/14/2024 08:24:55 Aortic aneurysm 73731065 I71.9 Paroxysmal atrial fibrillation 767838414 I48.0 Heart fail ure with normal ejection fraction 700002314 I50.30 Essential hypertension 44123273 I10 Health Concerns Section Related Observation LastModified by Organization Detai ls LastModified Time None Recorded Concern Status LastModified by Organization Details LastModified Time None Recorded Advance Directives Directive None Recorded Payers Insurance Date Sequence Insurance Name Policy Number Policy Garcia Covered Member ID Garcia Member ID Guarantor Name 12/17/2024 1 [employer] (MEDICARE REPLACEMENT/AD VANTAGE - PPO) Demario Castillo [id number] Demario Castillo 03/08/2025 3 [place] Demario Castillo [id number] Demario Castillo 01/20/2025 2 [place]MENT [place] Demario Castillo [id number] Demario Castillo 03/08/2025 4 [employer] BET[place] - DOS ON OR AFTER 2020 (MEDICAID REPLACEMENT - HMO) Jennie Castillo [id number] Demario Castillo
--- OUTSIDE RECORDS SUMMARY | 2025-03-11 09:56 | XMS_ITS ---
Author Organization Unknown Address [address] [place] [address] [phone] Phone Care Team Providers Care Assurance Manager Insurance Name Role Phone BRAULIO Cai Attending Unavailable MINO TIM Primary Unavailable Immunization Immunization Date Status Additional Notes Code Code System Tdap 01/12/2022 Completed 115 CVX Influenza, high-dose, trivalent, PF 06/26/2022 Completed 135 CVX Influenza, high-dose, trivalent, PF 06/28/2024 Completed 135 CVX Influenza, split virus, trivalent, [...] CVX zoster recombinant 07/03/2022 Completed 187 CVX Influenza, adjuvanted, quadrivalent, PF 07/05/2024 Completed 205 CVX COVID-19, mRNA, LNP-S, PF, 1 00 [...] 0 mcg/0.5 mL 06/14/2023 Completed 312 CVX COVID-19, mRNA, LNP-S, PF, 5 0 mcg/0.5 mL 06/28/2024 Completed 312 CVX COVID-19, mRNA, LNP-S, PF, 5 0 mcg/0.5 mL 07/05/2024 Completed 312 CVX Results STOOL FECAL FAT - QUALITATIV E - Collect Date/Time: 03/15/2024 15:00 [facility] ID: [id number] [address] [place] [address], [phone] LOINC: 95013-7 Test Value Unit Reference Range Code Code System Flag Fats, Neutral Normal 19891-0 LOINC Fats, Total Increased 07003-8 LOINC PANCREATIC ELASTASE FECAL (R EF) - Collect Date/Time: 03/15/2024 15:00 [facility] ID: [id number] [id number] [place] [address], [phone] LOINC: 73018-5 Test Value Unit Reference Range Code Code System Flag Pancreatic Elastase,Fecal 718 >200 53643-7 LOINC CALPROTECTIN FECAL REF - Col lect Date/Time: 03/15/2024 15:00 [facility] ID: [id number] [address] [place] [address], [phone] LOINC: 95738-2 Test Value Unit Reference Range Code Code System Flag Calprotectin, Fecal 255 0-120 66745-6 LOINC H TSH / REFLEX FT4 - Collect D ate/Time: 03/15/2024 09:48 [facility] ID: [id number] [address] [place] [address], [id number] LOINC: Test Value Unit Reference Range Code Code System Flag TSH 2.340 uIU/L L=0.470 H=4.680 90697-8 LOINC CELIAC DISEASE PANEL(REF) - Collect Date/Time: 03/15/2024 09:48 [facility] ID: [id number] [address] [place] [address], [id number] LOINC: Test Value Unit Reference Range Code Code System Flag Immunoglobulin A, Qn,Serum 378 61-437 2458-8 LOINC Deamidated Gliadin Abs,IgA 7 0-19 54170-9 LOINC Deamidated Gliadin Abs,IgG 2 0-19 39174-7 LOINC t-Transglutaminase (tTG)IgA <2 0-3 95030-4 LOIN C t-Transglutaminase (tTG)IgG <2 0-5 16041-2 LOIN C CRP NON SPECIFIC - Collect D ate/Time: 03/15/2024 09:48 [facility] ID: [id number] [address] [place] [address], [id number] LOINC: 1987-12 Test Value Unit Reference Range Code Code System Flag CRP-NON SPECIFIC < 5.0 mg/L L=0.0 H=10.0 1987-12 LOINC Social History Type Status Start Date End Date Code Code Syst em Smoking History Former smoker 5920086 SNOMED CT Sex Male Medications Medication Start Date End Date Route Frequency Dose Code Code System Medication Instructions Home Meds Ezetimibe 10 MG Oral Tablet 07/22/2022 Unknown ORAL ONCE A DAY 10 MG 087534 RxNorm TAKE 10 MG ORAL ONCE A DAY Famotidine 20MG Oral Tablet 07/22/2022 Unknown ORAL AT BEDTIME 20 MILLIGRAMS 257599 RxNorm TAKE 20 MILLIGRAMS ORAL AT BEDTIME Lisinopril 20MG Oral Tablet 07/22/2022 Unknown ORAL ONCE A DAY 20 MILLIGRAMS 322016 RxNorm TAKE 20 MILLIGRAMS ORAL ONCE A DAY Pradaxa 150MG Oral Capsule 07/22/2022 Unknown ORAL TWICE A DAY 150 MILLIGRAMS 9433714 RxNorm TAKE 150 MILLIGRAMS ORAL TWICE A DAY Allopurinol 100MG Oral Tablet 11/20/2023 Unknown ORAL ONCE A DAY 100 MILLIGRAMS 344055 RxNorm TAKE 100 MILLIGRAMS ORAL ONCE A DAY Furosemide 20MG Oral Tablet 11/20/2023 Unknown ORAL ONCE A DAY 20 MILLIGRAMS 264822 RxNorm TAKE 20 MILLIGRAMS ORAL ONCE A DAY Metoprolol Succinate ER 100MG Oral Tablet, Extended Release 11/20/2023 Unknown ORAL ONCE A DAY 100 MILLIGRAMS RxNorm TAKE 100 MILLIGRAMS ORAL ONCE A DAY hydrOXYzine HCl 25MG Oral Tablet 11/20/2023 Unknown ORAL ONCE A DAY 25 MILLIGRAMS 425277 RxNorm TAKE 25 MILLIGRAMS ORAL ONCE A [...] Co de Code System PENICILLIN Hives (SNOMED-CT: 861980891) Active Plan of Treatment EGD/Colonoscopy 07/22/2022 Colonoscopy 11/20/2023 MRI Abdomen WWO Contrast (64895) 2023 MRI Pelvis WWO Contrast (20144) 024 Encounters Encounter Diagnosis Start Date Code Code Sys tem Diarrhea, unspecified 03/15/2024 SNOMED -CT Personal Care Team Section Performer Name Performer Role Active Date Inactive TIM Sanchez PCP - Primary care physician
--- OUTSIDE RECORDS SUMMARY | 2025-03-11 09:56 | XMS_ITS ---
Author Organization Unknown Address [address] [place] [address] [phone] Phone Care Team Providers Care Order Expediter Name Role Phone BRAULIO Cai Attending Unavailable [...] 0 mcg/0.5 mL 07/05/2024 Completed 312 CVX Social History Type Status Start Date End Date Code Code Syst em Smoking History Former smoker 0853422 SNOMED CT Sex Male Medications Medication Start Date End Date Route Frequency Dose Code Code System Medication Instructions Home Meds Ezetimibe 10 MG Oral Tablet 07/22/2022 Unknown ORAL ONCE A DAY 10 MG 226970 RxNorm TAKE 10 MG ORAL ONCE A DAY Famotidine 20MG Oral Tablet 07/22/2022 Unknown ORAL AT BEDTIME 20 MILLIGRAMS 571873 RxNorm TAKE 20 MILLIGRAMS ORAL AT BEDTIME Lisinopril 20MG Oral Tablet 07/22/2022 Unknown ORAL ONCE A DAY 20 MILLIGRAMS 754917 RxNorm TAKE 20 MILLIGRAMS ORAL ONCE A DAY Pradaxa 150MG Oral Capsule 07/22/2022 Unknown ORAL TWICE A DAY 150 MILLIGRAMS 4727277 RxNorm TAKE 150 MILLIGRAMS ORAL TWICE A DAY Allopurinol 100MG Oral Tablet 11/20/2023 Unknown ORAL ONCE A DAY 100 MILLIGRAMS 339728 RxNorm TAKE 100 MILLIGRAMS ORAL ONCE A DAY Furosemide 20MG Oral Tablet 11/20/2023 Unknown ORAL ONCE A DAY 20 MILLIGRAMS 976194 RxNorm TAKE 20 MILLIGRAMS ORAL ONCE A DAY Metoprolol Succinate ER 100MG Oral Tablet, Extended Release 11/20/2023 Unknown ORAL ONCE A DAY 100 MILLIGRAMS RxNorm TAKE 100 MILLIGRAMS ORAL ONCE A DAY hydrOXYzine HCl 25MG Oral Tablet 11/20/2023 Unknown ORAL ONCE A DAY 25 MILLIGRAMS 612609 RxNorm TAKE 25 MILLIGRAMS ORAL ONCE A [...] Co de Code System PENICILLIN Hives (SNOMED-CT: 329297532) Active Plan of Treatment EGD/Colonoscopy 07/22/2022 Colonoscopy 11/20/2023 MRI Abdomen WWO Contrast (88416) 2023 MRI Pelvis WWO Contrast (57766) 024 Encounters Encounter Diagnosis Start Date Code Code Sys tem Diarrhea, unspecified 10/18/2024 SNOMED -CT Personal Care Team Section Performer Name Performer Role Active Date Inactive TIM Sanchez PCP - Primary care physician
--- OUTSIDE RECORDS SUMMARY | 2025-03-11 09:57 | XMS_ITS ---
Author Organization Unknown Address [address] [place] [address] [phone] Phone Care Team Providers Care Clinical Psychiatrist Name Role Phone JOANN Le Attending Unavailable [...] Code Syst em Smoking History Former smoker 9672978 SNOMED CT Sex Male Vital Signs Vital Sign Value Unit Mccormick Value Mccormick Unit Date/Time Recent/Initial? Code Code System Body Mass Index 34.72 kg/m2 11/20/2023 07:57 Most Recent 61783 -5 [facility] Body Mass Index 34.02 kg/m2 11/10/2023 10:39 Initial 18937 -5 [facility] Systolic Blood Pressure 109 mm[Hg] 11/20/2023 08:00 Initial 8480- 6 [facility] Diastolic Blood Pressure 61 mm[Hg] 11/20/2023 08:00 Initial 8462- 4 [facility] Body Surface Area 2.43 m2 11/20/2023 07:57 Most Recent 3140- 1 [facility] Body Surface Area 2.51 m2 11/10/2023 10:39 Initial 3140- 1 [facility] Height 182.880 0 cm 72.00 in 11/20/2023 07:57 Most Recent 8302- 2 LOINC Height 187.960 0 cm 74.00 in 11/10/2023 10:39 Initial 8302- 2 LOINC O2 Saturation 96 % 2023 08:00 Initial 83000 -5 [facility] Pulse 56.0 /min 11/20/2023 08:00 Initial 8867- 4 [facility] Respiration 12 /min 11/20/19 08:00 Initial 9279- 1 [facility] Temperature 36.6 Anamika 97.8 F 11/20/19 08:00 Initial 8310- 5 [facility] Weight 116.12 kg 256.00 lbs 11/20/2023 07:57 Most Recent 35288 -7 [facility] Weight 120.20 kg 265.00 lbs 11/10/2023 10:39 Initial 88970 -7 [facility] Medications Medication Start Date End Date Route Frequency Dose Code Code System Medication Instructions Home Meds Ezetimibe 10 MG Oral Tablet 07/22/2022 Unknown ORAL ONCE A DAY 10 MG 771717 RxNorm TAKE 10 MG ORAL ONCE A DAY Famotidine 20MG Oral Tablet 07/22/2022 Unknown ORAL AT BEDTIME 20 MILLIGRAMS 978967 RxNorm TAKE 20 MILLIGRAMS ORAL AT BEDTIME Lisinopril 20MG Oral Tablet 07/22/2022 Unknown ORAL ONCE A DAY 20 MILLIGRAMS 437177 RxNorm TAKE 20 MILLIGRAMS ORAL ONCE A DAY Pradaxa 150MG Oral Capsule 07/22/2022 Unknown ORAL TWICE A DAY 150 MILLIGRAMS 3679324 RxNorm TAKE 150 MILLIGRAMS ORAL TWICE A DAY Allopurinol 100MG Oral Tablet 11/20/2023 Unknown ORAL ONCE A DAY 100 MILLIGRAMS 952379 RxNorm TAKE 100 MILLIGRAMS ORAL ONCE A DAY Furosemide 20MG Oral Tablet 11/20/2023 Unknown ORAL ONCE A DAY 20 MILLIGRAMS 099838 RxNorm TAKE 20 MILLIGRAMS ORAL ONCE A DAY Metoprolol Succinate ER 100MG Oral Tablet, Extended Release 11/20/2023 Unknown ORAL ONCE A DAY 100 MILLIGRAMS RxNorm TAKE 100 MILLIGRAMS ORAL ONCE A DAY hydrOXYzine HCl 25MG Oral Tablet 11/20/2023 Unknown ORAL ONCE A DAY 25 MILLIGRAMS 724309 RxNorm TAKE 25 MILLIGRAMS ORAL ONCE A [...] with biopsy, single or multiple 11/20/2023 completed 08797 CPT Anesthesia for lower intesti nal endoscopic procedures, endoscope introduce 11/20/2023 completed 35310 CPT History of tonsillectomy completed [id number] SNOMEDCT ERCP completed [id number] SNOMEDCT Allergies and Adverse Reactions Allergy Substance Reaction Severity Start Date Concern Status Co de Code System PENICILLIN Hives (SNOMED-CT: 220567196) Active Plan of Treatment EGD/Colonoscopy 07/22/2022 Colonoscopy 11/20/2023 MRI Abdomen WWO Contrast (71121) 2023 MRI Pelvis WWO Contrast (50943) 024 Encounters Encounter Diagnosis Start Date Code Code Sys tem Encounter for screening for malignant neoplasm of colo n 11/20/2023 SNOMED-CT Personal Care Team Section Performer Name Performer Role Active Date Inactive TIM Sanchez PCP - Primary care physician Procedures Notes
--- OUTSIDE RECORDS SUMMARY | 2025-03-11 09:57 | XMS_ITS ---
Author Organization Unknown Address [address] [place] [address] [phone] Phone Care Team Providers Care Band Sawing Machine Operator Name Role Phone BRAULIO Cai Attending Unavailable [...] mcg/0.5 mL 07/05/2024 Completed 312 CVX Results BUN/CREAT - Collect Date/Oscar e: 05/18/2024 08:39 [facility] ID: [id number] [address] [place], [place], [phone] LOINC: 3097-3 Test Value Unit Reference Range Code Code System Flag BUN 17 mg/dL L=7 H=20 3094-0 LOINC CREATININE 1.10 mg/dL L=0.66 H=1.25 2160-0 LOINC AGE 63 10707-5 LOINC eGFR NON-AFR 71 ml/min eGFR AFR [...] Asael Jesus M.D. JA: RAFAELA Report ID: [id number] Reading Location: [id number] MRI PELVIS W+WO CONTRAST - C ompleted: [...] 9:18 AM - Electronically signed by Asael RUSSO: RAFAELA Report ID: [id number] Reading Location: [place] [address] Social History Type Status Start Date End Date Code Code Syst em Smoking History Former smoker 4727007 SNOMED CT Sex Male Medications Medication Start Date End Date Route Frequency Dose Code Code System Medication Instructions Home Meds Ezetimibe 10 MG Oral Tablet 07/22/2022 Unknown ORAL ONCE A DAY 10 MG 132868 RxNorm TAKE 10 MG ORAL ONCE A DAY Famotidine 20MG Oral Tablet 07/22/2022 Unknown ORAL AT BEDTIME 20 MILLIGRAMS 059964 RxNorm TAKE 20 MILLIGRAMS ORAL AT BEDTIME Lisinopril 20MG Oral Tablet 07/22/2022 Unknown ORAL ONCE A DAY 20 MILLIGRAMS 362977 RxNorm TAKE 20 MILLIGRAMS ORAL ONCE A DAY Pradaxa 150MG Oral Capsule 07/22/2022 Unknown ORAL TWICE A DAY 150 MILLIGRAMS 3397680 RxNorm TAKE 150 MILLIGRAMS ORAL TWICE A DAY Allopurinol 100MG Oral Tablet 11/20/2023 Unknown ORAL ONCE A DAY 100 MILLIGRAMS 872784 RxNorm TAKE 100 MILLIGRAMS ORAL ONCE A DAY Furosemide 20MG Oral Tablet 11/20/2023 Unknown ORAL ONCE A DAY 20 MILLIGRAMS 510740 RxNorm TAKE 20 MILLIGRAMS ORAL ONCE A DAY Metoprolol Succinate ER 100MG Oral Tablet, Extended Release 11/20/2023 Unknown ORAL ONCE A DAY 100 MILLIGRAMS RxNorm TAKE 100 MILLIGRAMS ORAL ONCE A DAY hydrOXYzine HCl 25MG Oral Tablet 11/20/2023 Unknown ORAL ONCE A DAY 25 MILLIGRAMS 722984 RxNorm TAKE 25 MILLIGRAMS ORAL ONCE A [...] Co de Code System PENICILLIN Hives (SNOMED-CT: 605101138) Active Plan of Treatment EGD/Colonoscopy 07/22/2022 Colonoscopy 11/20/2023 MRI Abdomen WWO Contrast (60415) 09/17/ 2024 MRI Pelvis WWO Contrast (40098) 024 Encounters Encounter Diagnosis Start Date Code Code Sys tem Diarrhea, unspecified 05/18/2024 SNOMED -CT Personal Care Team Section Performer Name Performer Role Active Date Inactive TIM Sanchez PCP - Primary care physician Imaging Narrative Notes
--- OUTSIDE RECORDS SUMMARY | 2025-03-11 09:57 | XMS_ITS ---
Author Organization Unknown Address [address] [place] [address] [phone] Phone Care Team Providers Care Parts Counter Salesperson Name Role Phone SUSANNA THOMAS Attending Unavailable [...] Code Syst em Smoking History Former smoker 1017127 SNOMED CT Sex Male Medications Medication Start Date End Date Route Frequency Dose Code Code System Medication Instructions Home Meds Ezetimibe 10 MG Oral Tablet 07/22/2022 Unknown ORAL ONCE A DAY 10 MG 516679 RxNorm TAKE 10 MG ORAL ONCE A DAY Famotidine 20MG Oral Tablet 07/22/2022 Unknown ORAL AT BEDTIME 20 MILLIGRAMS 265389 RxNorm TAKE 20 MILLIGRAMS ORAL AT BEDTIME Lisinopril 20MG Oral Tablet 07/22/2022 Unknown ORAL ONCE A DAY 20 MILLIGRAMS 725432 RxNorm TAKE 20 MILLIGRAMS ORAL ONCE A DAY Pradaxa 150MG Oral Capsule 07/22/2022 Unknown ORAL TWICE A DAY 150 MILLIGRAMS 2193335 RxNorm TAKE 150 MILLIGRAMS ORAL TWICE A DAY Allopurinol 100MG Oral Tablet 11/20/2023 Unknown ORAL ONCE A DAY 100 MILLIGRAMS 541682 RxNorm TAKE 100 MILLIGRAMS ORAL ONCE A DAY Furosemide 20MG Oral Tablet 11/20/2023 Unknown ORAL ONCE A DAY 20 MILLIGRAMS 308296 RxNorm TAKE 20 MILLIGRAMS ORAL ONCE A DAY Metoprolol Succinate ER 100MG Oral Tablet, Extended Release 11/20/2023 Unknown ORAL ONCE A DAY 100 MILLIGRAMS RxNorm TAKE 100 MILLIGRAMS ORAL ONCE A DAY hydrOXYzine HCl 25MG Oral Tablet 11/20/2023 Unknown ORAL ONCE A DAY 25 MILLIGRAMS 761321 RxNorm TAKE 25 MILLIGRAMS ORAL ONCE A [...] Co de Code System PENICILLIN Hives (SNOMED-CT: 356885480) Active Plan of Treatment EGD/Colonoscopy 07/22/2022 Colonoscopy 11/20/2023 MRI Abdomen WWO Contrast (78163) 2023 MRI Pelvis WWO Contrast (19172) 024 Encounters Encounter Diagnosis Start Date Code Code Sys tem Paroxysmal atrial fibrillation 03/09/2024 SNOMED-CT Personal Care Team Section Performer Name Performer Role Active Date Inactive TIM Sanchez PCP - Primary care physician
--- OUTSIDE RECORDS SUMMARY | 2025-03-11 09:57 | XMS_ITS ---
Author Organization Unknown Address [address] [place] [address] [phone] Phone Care Team Providers Care Railroad Track Repair Supervisor Name Role Phone SUSANNA THOMAS Attending Unavailable [...] Code Syst em Smoking History Former smoker 5757691 SNOMED CT Sex Male Medications Medication Start Date End Date Route Frequency Dose Code Code System Medication Instructions Home Meds Amitriptyline 25MG Oral Tablet 07/22/2022 11/10/2023 ORAL AT BEDTIME 25 MILLIGRAMS 191317 RxNorm TAKE 25 MILLIGRAMS ORAL AT BEDTIME Escitalopram 10MG Oral Tablet 07/22/2022 11/10/2023 ORAL ONCE A DAY 10 MILLIGRAMS 548830 RxNorm TAKE 10 MILLIGRAMS ORAL ONCE A DAY Ezetimibe 10 MG Oral Tablet 07/22/2022 Unknown ORAL ONCE A DAY 10 MG 634868 RxNorm TAKE 10 MG ORAL ONCE A DAY Famotidine 20MG Oral Tablet 07/22/2022 Unknown ORAL AT BEDTIME 20 MILLIGRAMS 787713 RxNorm TAKE 20 MILLIGRAMS ORAL AT BEDTIME HYDROcodone bitartrate-júnior taminophen 7.5MG-325MG Oral Tablet 07/22/2022 11/10/2023 ORAL NEEDED EVERY 4 HOURS 1 unit(s) 283029 RxNorm TAKE 1 EACH ORAL NEEDED EVERY 4 HOURS Lisinopril 20MG Oral Tablet 07/22/2022 Unknown ORAL ONCE A DAY 20 MILLIGRAMS 739153 RxNorm TAKE 20 MILLIGRAMS ORAL ONCE A DAY Metoprolol Succinate ER 100MG Oral Tablet, Extended Release 07/22/2022 11/10/2023 ORAL ONCE A DAY 200 MILLIGRAMS RxNorm TAKE 200 MILLIGRAMS ORAL ONCE A DAY Pradaxa 150MG Oral Capsule 07/22/2022 Unknown ORAL TWICE A DAY 150 MILLIGRAMS 3565238 RxNorm TAKE 150 MILLIGRAMS ORAL TWICE A DAY Triamcinolone Acetonide 0.1% Topical application Cream 07/22/2022 11/10/2023 TOPIC AL APPLI CATIO N NEEDED 1 unit(s) 2893200 RxNorm 1 EACH TOPICAL APPLICATION NEEDED Allopurinol 100MG Oral Tablet 11/20/2023 Unknown ORAL ONCE A DAY 100 MILLIGRAMS 365822 RxNorm TAKE 100 MILLIGRAMS ORAL ONCE A DAY Furosemide 20MG Oral Tablet 11/20/2023 Unknown ORAL ONCE A DAY 20 MILLIGRAMS 728904 RxNorm TAKE 20 MILLIGRAMS ORAL ONCE A DAY Metoprolol Succinate ER 100MG Oral Tablet, Extended Release 11/20/2023 Unknown ORAL ONCE A DAY 100 MILLIGRAMS RxNorm TAKE 100 MILLIGRAMS ORAL ONCE A DAY hydrOXYzine HCl 25MG Oral Tablet 11/20/2023 Unknown ORAL ONCE A DAY 25 MILLIGRAMS 482463 RxNorm TAKE 25 MILLIGRAMS ORAL ONCE A [...] Co de Code System PENICILLIN Hives (SNOMED-CT: 352138299) Active Plan of Treatment EGD/Colonoscopy 07/22/2022 Colonoscopy 11/20/2023 MRI Abdomen WWO Contrast (19320) 2023 MRI Pelvis WWO Contrast (85946) 024 Encounters Encounter Diagnosis Start Date Code Code Sys tem Paroxysmal atrial fibrillation 07/15/2023 SNOMED-CT Personal Care Team Section Performer Name Performer Role Active Date Inactive TIM Sanchez PCP - Primary care physician
--- OUTSIDE RECORDS SUMMARY | 2025-03-11 09:57 | XMS_ITS ---
Author Organization Unknown Address [address] [place] [address] [phone] Phone Care Team Providers Care Avionics Manager Name Role Phone MULLINS MARTHA Attending Unavailable MINO TIM Primary Unavailable Immunization [...] Code Syst em Smoking History Former smoker 2462999 SNOMED CT Sex Male Medications Medication Start Date End Date Route Frequency Dose Code Code System Medication Instructions Home Meds Ezetimibe 10 MG Oral Tablet 07/22/2022 Unknown ORAL ONCE A DAY 10 MG 658551 RxNorm TAKE 10 MG ORAL ONCE A DAY Famotidine 20MG Oral Tablet 07/22/2022 Unknown ORAL AT BEDTIME 20 MILLIGRAMS 500694 RxNorm TAKE 20 MILLIGRAMS ORAL AT BEDTIME Lisinopril 20MG Oral Tablet 07/22/2022 Unknown ORAL ONCE A DAY 20 MILLIGRAMS 657288 RxNorm TAKE 20 MILLIGRAMS ORAL ONCE A DAY Pradaxa 150MG Oral Capsule 07/22/2022 Unknown ORAL TWICE A DAY 150 MILLIGRAMS 8894018 RxNorm TAKE 150 MILLIGRAMS ORAL TWICE A DAY Allopurinol 100MG Oral Tablet 11/20/2023 Unknown ORAL ONCE A DAY 100 MILLIGRAMS 653148 RxNorm TAKE 100 MILLIGRAMS ORAL ONCE A DAY Furosemide 20MG Oral Tablet 11/20/2023 Unknown ORAL ONCE A DAY 20 MILLIGRAMS 964490 RxNorm TAKE 20 MILLIGRAMS ORAL ONCE A DAY Metoprolol Succinate ER 100MG Oral Tablet, Extended Release 11/20/2023 Unknown ORAL ONCE A DAY 100 MILLIGRAMS RxNorm TAKE 100 MILLIGRAMS ORAL ONCE A DAY hydrOXYzine HCl 25MG Oral Tablet 11/20/2023 Unknown ORAL ONCE A DAY 25 MILLIGRAMS 894926 RxNorm TAKE 25 MILLIGRAMS ORAL ONCE A [...] Co de Code System PENICILLIN Hives (SNOMED-CT: 549968342) Active Plan of Treatment EGD/Colonoscopy 07/22/2022 Colonoscopy 11/20/2023 MRI Abdomen WWO Contrast (86473) 2023 MRI Pelvis WWO Contrast (34201) 024 Encounters Encounter Diagnosis Start Date Code Code Sys tem Aortic aneurysm of unspecified site, without rupture 0 10/12/2024 SNOMED-CT Personal Care Team Section Performer Name Performer Role Active Date Inactive TIM Sanchez PCP - Primary care physician
--- OUTSIDE RECORDS SUMMARY | 2025-03-11 09:57 | XMS_ITS | Clinical Summary ---
Author Organization [facility] Address [address] [place] [address] Care Team Providers Care Title Officer Name Role Phone Robles Disla MD Primary Care Provider [phone] Allergies Active Allergy Reactions Criticality Noted Date Comments Penicillins Other (see comment) 02/02/2021 Broke out in bruises Medications metoprolol succinate ER 50 MG 24 hr tablet Take 2 tablets (100 mg total) by mouth daily. Active dabigatran 150 MG Cap Take 150 mg by mouth 2 (two) times daily. Active multi vitamin/mineral s tablet Take 1 tablet by mouth daily. Active loratadine 10 MG tablet Take 10 mg by mouth daily. Active diphenhydrAMINE 50 MG tablet Take 50 mg by mouth nightly as needed for Itching. Active famotidine (PEPCID) 20 MG tablet 01/19/2023 Active ezetimibe (ZETIA) 10 MG tablet 01/19/2023 Active hydrOXYzine (VISTARIL) 25 MG capsule TAKE 1 TO 2 CAPSULES BY MOUTH THREE TIMES DAILY NEEDED FOR SEVERE ANXIETY 01/13/2023 Active lisinopril (PRINIVIL) 20 MG tablet Take 1 tablet (20 mg total) by mouth daily. 01/06/2023 Active Active Problems Problem Noted Date Diagnosed Date Vertigo 03/30/2023 Social History Tobacco Use Types Packs/Day Years Used Date Smoking Tobacco: Every Day Smokeless Tobacco: Never Tobacco Cessation:Ready to Q uit: Not Asked; Counseling Given: Not Answered Alcohol Use Standard Drinks/Week Comments Not Asked 66.7 (1 standard drink = 0.6 oz pure alcohol) Sex and Gender Information Value Date Recorded Sex Assigned at Not on file Legal Sex Male 10:35 AM JAILOR Gender Identity Not on file Sexual Orientation Not on file Last Filed Vital Signs Vital Sign Reading Time Taken Comments Blood Pressure 92/55 05/31/2023 4:30 PM CDT Pulse 57 05/31/2023 4:30 PM CDT Temperature 36.2 C (97.2 F) 05/31/2023 12:57 PM CDT Respiratory Rate 13 05/31/2023 4:30 PM CDT Oxygen Saturation 97% 05/31/2023 4:30 PM CDT Inhaled Oxygen Concentration - - Weight 117.9 kg (260 lb) 05/31/2023 12:57 PM CDT Height 188 cm (6' 2) 05/31/2023 12:57 PM CDT Body Mass Index 33.38 05/31/2023 12:57 PM CDT Plan of Treatment Health Maintenance Due Date Last Done Comments Colorectal Cancer Screening Colonoscopy (10 Years) 1958 DTaP, Tdap and Td Vaccines ( 1 - Tdap) 1977 Pneumococcal Vaccine: 50+ Ye ars (1 of 2 - PCV) 1977 Zoster Vaccines (1 of 2) 2008 Annual Medicare Wellness Visit 2023 COVID-19 Vaccine (2 - 2023-2 5 season) 2024 11/03/2020 RSV Immunization or 60+ Years (1 - 1-dose 75+ series) 2033 Hepatitis C Completed 05/27/2021 Meningococcal B Vaccine Aged Out No l onger eligible based on patient's age to complete this topic Meningococcal Vaccine Aged Out No wenceslao quintin eligible based on patient's age to complete this topic RSV Immunizations Under 20 Months Aged Out No longer eligible based on patient's age to complete this topic Insurance MEDICARE MEDICAID Care Teams Title Officer Relationship Specialty Start Date End Date Robles Disla MD [address] [place], [place] [phone] PCP - General FAMILY PRACTICE 11/10/20
== END 2025-03-11 09:52 | disposition home or self-care (01) ==
LOC: CHSIMG 09:53
PROVIDERS: PCP Family Medicine; Visit Provider Family Medicine
DX: Z12.2 Encounter for screening for malignant neoplasm of respiratory organs (principal); Z87.891 Personal history of nicotine dependence
CPT/HCPCS: 71271

== ENCOUNTER 2025-04-06 09:52 | Outpatient (CLI) | payer MEDICARE, MEDICAID, SELFPAY ==
--- OUTSIDE RECORDS SUMMARY | 2025-04-06 10:23 | XMS_ITS | Clinical Summary ---
Author Organization [facility] Address [address] [place] [address] Care Team Providers Care Pediatric Assistant Name Role Phone Robles Disla MD Primary Care Provider [phone] Source Comments [facility],non-owned Affiliates and Associated Physician Practices is amultiple site organization consisting of ambulatory clinics and hospital sitesin [place], [place] and [place]. This disclosure is being madepursuant to the Care Everywhere program and may not contain all information available regarding this patient. Last updated 18.[facility] [employer] Allergies Active Allergy Reactions Criticality Noted Date [...] this topic Medical Devices Implanted Type Area Bread Wrapper Device Identifier Shelf Expiration Date Model / Serial / Lot Stent Biliary 10fr 5cm Ddnl Bnd Preld Implanted:Qty: 1 on 05/28/2021 by Gary Timmons MD at [facility] [employer] [facility] 02/27/2023 [id number] / / [id number] Procedures Procedure Name Priority Date/Time Associated Diagnosis Comments COMPREHENSIVE METABOLIC PANEL AM Draw 05/30/2021 5:16 AM CDT HEPATITIS C ANTIBODY Routine 05/27/2021 12:15 AM CDT from Last 3 Months or Most Recently Relevant to Health Maintenance Results * (ABNORMAL) COMPREHENSIVE METABOLIC PANEL (05/30/2021 5:16 AM CDT) Pathologist [facility] Glucose 98 70 - 105 mg/dL 05/30/2021 6:08 AM CDT [facility] Sodium 141 136 - 145 mmol/L 05/30/2021 6:08 AM CDT [facility] Potassium 3.7 3.5 - 5.1 mmol/L 05/30/2021 6:08 AM CDT [facility] Chloride 109(H) 98 - 107 mmol/L 05/30/2021 6:08 AM CDT [facility] CO2 23 23 - 31 mmol/L 05/30/2021 6:08 AM [facility] Calcium 8.7 8.4 - 10.4 mg/dL 05/30/2021 6:08 AM T [facility] Anion Gap 9 8 - 18 mmol/L 05/30/2021 6:08 AM T [facility] BUN 11 8.4 - 25.7 mg/dL 05/30/2021 6:08 AM T -[facility] Creatinine 0.80 0.72 - 1.25 mg/dL 05/30/2021 6:08 AM T -[facility] Alkaline Phosphatase 146 40 - 150 U/L 05/30/2021 6:08 AM T -[facility] ALT 356(H) 0 - 61 U/L 05/30/2021 6:08 AM T [facility] AST 121(H) 5 - 34 U/L 05/30/2021 6:08 AM T [facility] Protein Total 6.0(L) 6.4 - 8.3 gm/dL 05/30/2021 6:08 AM T -[facility] Albumin 3.1(L) 3.2 - 4.6 gm/dL 05/30/2021 6:08 AM T -[facility] Bilirubin Total 1.5(H) 0.2 - 1.2 mg/dL 05/30/2021 6:08 AM T -[facility] eGFR by MDRD >60 >60 mL/min/1.7 3m2 05/30/2021 6:08 AM T -[facility] eGFR by MDRD >60 >60 mL/min/1.7 3m2 05/30/2021 6:08 AM T [facility] Blood BLOOD SPECIMEN / Unknown Lab Venipuncture / Unknown 05/30/2021 5:16 AM CDT 05/30/2021 5:42 AM CDT us Zafar Horn MD LAB - CHEMISTRY ORDERABLES Fin al Result [facility] [address] [place] [address] * HEPATITIS C ANTIBODY (05/27/2021 12:15 AM CDT) HCV Antibody Screen Non Reactive Non Reactive 05/27/2021 7:23 PM CDT [facility] Blood BLOOD SPECIMEN / Unknown Lab Venipuncture / Unknown 05/27/2021 12:15 AM CDT 05/27/2021 12:17 AM CDT Narrative [facility] - 05/27/2021 7:23 PM CDT Non Reactive - Antibodies to Hepatitis C virus (HCV) were not detected, result does not exclude early acute HCV infection. Davion Mcguire MD LAB - CHEMISTRY ORDERABLES Final Result [facility] [address] [place] [address] from Last 3 Months or Most Recently Relevant to Health Maintenance Insurance [facility] MEDICAID Advance Directives * Full Code (Latest Code Status on File) Date Activated Date Inactivated Comments 05/27/2021 12:06 AM 05/30/2021 12:06 PM Care Teams Pediatric Assistant Relationship Specialty Start Date End Date Robles Disla MD [address] [place] [phone] PCP - General Family Medicine 05/26/21
== END 2025-04-06 09:53 | disposition home or self-care (01) ==
LOC: CHSCARD 09:56
PROVIDERS: PCP Family Medicine; Visit Provider Family Medicine
DX: R13.11 Dysphagia, oral phase (principal); R06.09 Other forms of dyspnea
CPT/HCPCS: 94060; 94726; 94729

== ENCOUNTER 2025-05-21 20:37 | Emergency (ER) | payer MEDICARE, MEDICAID, SELFPAY ==
[2025-05-21] VITALS (10 sets, daily range): BP systolic 91–134; BP diastolic 55–96; PULSE 67–164; RESP 18–26; TEMP 36.2; O2SAT 91–97
--- NOTE | ~2025-05-21 | XR_ITS ---
Examination: XR chest 1V portable Clinical History: Chest pain with shortness of breath Comparison: Chest x-ray 09/22/2024 Technique: Portable AP Findings: Heart size normal. Minimally increased diffuse interstitial markings. No acute bony abnormality. IMPRESSION: 1. Mild pneumonitis not excluded. 2. Otherwise no acute findings. Reviewed, dictated and finalized at location R.
--- NOTE | 2025-05-21 20:40 | ECG_ITS ---
Test Date: 2025-05-21 20:44:22 Measurements Intervals [place] Rate: 151 P: 0 NV: 0 QRS: 51 QRSD: 112 T: 38 QT: 292 QTc: 464 Interpretive Statements ATRIAL FLUTTER/TACHYCARDIA WITH RAPID VENTRICULAR RESPONSE INCOMPLETE RIGHT BUNDLE BRANCH BLOCK [90+ ms QRS DURATION, TERMINAL R IN V1/V2, 40+ ms S IN I/aVL/V4/V5/V6] CONSIDER PREVIOUS ANTEROSEPTAL INFARCTION ABNORMAL ECG No previous ECG available for comparison Electronically Signed On 05-22-2025 08:34:18 CDT by Rudi Rothman M.D.
--- NOTE | 2025-05-21 20:54 | ECG_ITS ---
Test Date: 2025-05-21 20:58:21 Measurements Intervals [place] Rate: 75 P: 0 MI: 0 QRS: -7 QRSD: 109 T: 18 QT: 345 QTc: 387 Interpretive Statements ATRIAL FLUTTER/TACHYCARDIA LOW QRS VOLTAGE IN PRECORDIAL LEADS [QRS DEFLECTION < 1.0 mV IN CHEST LEADS] INCOMPLETE RIGHT BUNDLE BRANCH BLOCK [90+ ms QRS DURATION, TERMINAL R IN V1/V2, 40+ ms S IN I/aVL/V4/V5/V6] ABNORMAL RHYTHM ECG Compared to ECG 05/21/2025 20:44:22 VENTRICULAR RESPONSE TO ATRIAL FLUTTER IS MORE CONTROLLED Electronically Signed On 05-22-2025 08:35:21 CDT by Rudi Rothman M.D.
--- NOTE | 2025-05-21 21:02 | PC.NURSE ---
LAB AT THE BEDSIDE
--- NOTE | 2025-05-21 21:09 | PC.NURSE ---
PATIENT REPORTS THAT HE IS FEELING MUCH BETTER COMPARED TO ARRIVAL. CHEST PRESSURE HAS DECREASED. CONTINUES TO REPORT SHORTNESS OF BREATH. CXR PENDING
[2025-05-21] MEDS: ASPIRIN 81 MG CHEWABLE TABLET 324 MG PO (21:11)
--- OUTSIDE RECORDS SUMMARY | 2025-05-21 21:16 | XMS_ITS | Clinical Summary ---
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
--- NOTE | 2025-05-21 21:24 | PC.NURSE ---
PATIENT IS CURRENTLY RESTING ON STRETCHER. REPOSITIONED FOR COMFORT. CALL LIGHT IN REACH. UPDATED PATIENT REGARDING LENGTH OF TIME THAT WILL BE NEEDED FOR BLOOD WORK AND RADIOLOGY RESULTS TO POST. VERBALIZED UNDERSTANDING. OFFERED BLANKET. DOES NOT WANT ONE AT THIS TIME.
[2025-05-21 21:28] LABS: Hematocrit 48.2 % (37.0-46.0); Hemoglobin 16.2 g/dL (12.4-15.3); Immature Granulocyte Percent A 0.9 % (0.0-0.0); Lymphocytes Absolute Auto 2.36 K/mm3 (1.10-4.50); Mean Corpuscular HGB Conc 33.6 g/dL (32-36); Mean Corpuscular Hemoglobin 31.5 pg (27.0-31.0); Mean Corpuscular Volume 93.8 fL (78.0-102.0); Nucleated Red Blood Cells Absolute Auto 0.00 K/mm3 (0.00-0.00); Nucleated Red Blood Cells Perc 0.0 % (0-0.0); Platelet Count Result 231 K/mm3 (150-420); Red Blood Count 5.14 M/mm3 (4.70-6.10); White Blood Count 9.2 K/mm3 (4.8-10.8)
[2025-05-21 21:35] LABS: Alanine Aminotransferase 41 U/L (6-50); Albumin Level 4.5 g/dL (3.5-5.1); Alkaline Phosphatase 68 U/L (38-126); Anion Gap 12 mmol/L (4-12); Aspartate Amino Transferase 36 U/L (17-59); Bilirubin,Total 0.4 mg/dL (0.2-1.3); Blood Urea Nitrogen 24 mg/dL (9-20); Calcium 10.1 mg/dL (8.4-10.2); Carbon Dioxide 25 mmol/L (22-30); Chloride 106 mmol/L (98-107); Estimated CRCL calculation 61 ml/min; Estimated Glomerular Filt Rate 58; Glucose 184 mg/dL (65-110); Lipase 88 U/L (23-300); Osmolality Calculated 305 mOsm/kg (285-295); Potassium 4.2 mmol/L (3.4-5.0); Sodium 143 mmol/L (137-145); Total Protein 8.6 g/dL (6.3-8.2)
[2025-05-21 21:37] LABS: INR 1.0; Partial Thromboplastin Time 38.5 Sec (23.9-30.70); Prothrombin Time 11.5 Seconds (9.50-12.1)
[2025-05-21 21:46] LABS: NT Pro B Type Natriuretic Pept 2340 pg/mL (19.9-100)
[2025-05-21 21:50] LABS: Troponin I < 0.012 ng/mL (0.000-0.034)
--- NOTE | 2025-05-21 22:14 | PC.NURSE ---
PATIENT AMBULATED TO THE BATHROOM
--- NOTE | 2025-05-21 22:20 | PC.NURSE ---
PATIENT RETURNED TO STRETCHER. HEART RATE INCREASED TO 110 AFIB. STATES HE IS SHORT OF BREATH WITH WALKING. STRAIGHT CUTTER MACHINE IN PLACE. HEART RATE REDUCED TO 78, AFIB. WOB LABORED DUE TO WALKING TO THE RESTROOM. WILL USE URINAL THE NEXT TIME HE NEEDS TO VOID. PATIENT HAS CALL LIGHT. REPOSITIONED FOR COMFORT. OFFERED BLANKET. DOES NOT WANT ONE AT THIS TIME.
--- NOTE | 2025-05-21 22:47 | PC.NURSE ---
DR TRENT AT THE BEDSIDE
--- NOTE | 2025-05-21 22:56 | PC.NURSE ---
DR TRENT WANTS LAB TO COME DRAW SECOND TROP AT 2315. [facility] HAS BEEN NOTIFIED.
--- NOTE | 2025-05-21 23:17 | PC.NURSE ---
KATHLEEN WITH LAB AT THE BEDSIDE
--- NOTE | 2025-05-21 23:17 | ED.CHESTPAIN ---
HPI - Chest Pain General Chief Complaint: Chest Pain Stated Complaint: chest pain/sob Time Seen by Provider: 05/21/25 20:42 Source: patient Mode of arrival: ambulatory Limitations: no limitations History of Present Illness HPI narrative: this is a 64-year-old male with history of atrial fibrillation CHF that presents with chest heaviness with no radiation of his pain no nausea or vomiting patient does feel mildly short of breath has a history of COPD no fever chills no dysuria no flank pain no abdominal pain. MD complaint: chest heaviness Onset (ago): day(s) Timing of current episode: constant Prior episodes: No Onset: during rest Pain location: substernal Severity: moderate Pain scale (0-10): 4 Quality: heaviness Related Data Home Medications ?Medication ?Instructions ?Recorded ?Confirmed ?Last Taken ?Type tramadol 50 mg tablet 50 mg PO PRN PRN Pain 09/12/20 05/26/21 Unknown History dabigatran etexilate 150 mg 150 mg PO DAILY 05/26/21 05/26/21 Unknown History capsule (Pradaxa) metoprolol tartrate 25 mg tablet 25 mg PO BID 05/26/21 05/26/21 Unknown History Allergies Allergy/AdvReac Type Severity Reaction Status Date / Time Penicillins Allergy Unknown Unknown Verified 05/21/25 21:40 Review of Systems Review of Systems: All systems reviewed & are unremarkable except as noted in HPI and below PMFSH Past Medical History Medical History De Quervain's tenosynovitis, left Carpal tunnel syndrome of left wrist Extensor tenosynovitis of right wrist Family History Family History Father Diabetes mellitus Social History Social History Smoking status: Current every day smoker Tobacco type: e-cigarettes/vaping Additional smoking assessment comments: One pack per day times 30 years has been vaping for the last 5 years. Alcohol intake: current Drinks per week: 15 Substance use: never Exam Const: General: healthy appearing, no acute distress and alert Nutritional Appearance: well nourished Orientation/consciousness: patient oriented x3 Limitations: no limitations HENMT: Head: normal to inspection Neck: Neck: normal visual inspection and no lymphadenopathy Chest: Chest palpation & inspection: normal inspection of the chest Resp: Effort & Inspection: normal respiratory effort Cardio: Rate: tachycardic Rhythm: abnormal rhythm Heart sounds: Murmur heart sound present GI: GI Palp: Yes Soft to palpation Auscultation: normal bowel sounds : General: Yes bladder normal to palpation Skin: General skin exam: normal color Rashes: no rashes Wounds: no wounds Neuro: General: patient oriented x3, moves all extremities, no meningeal signs and no focal motor deficits Course Course Emergency Course: Patient with some AFib with RVR on EKG with heart rate initially 160s and patient did receive 10mg of IV Cardizem which converted his rapid ventricular rate and current heart rate of 67 blood pressure 117/96. Patient has a history of CHF his BMP is a little over 2000 with normal white count troponins are negative x2. The patient is currently chest pain-free with no chest heaviness chest x-ray shows some mild pulmonary vascular congestion otherwise no evidence of filling infiltrates. Patient stable to be discharged home. Vital Signs Vital signs: Vital Signs Temperature 36.2 C L 05/21/25 20:37 Pulse Rate 164 H 05/21/25 20:37 Respiratory Rate 26 H 05/21/25 20:37 Blood Pressure 117/96 H 05/21/25 20:37 Pulse Oximetry 96 05/21/25 20:37 Oxygen Delivery Room Air 05/21/25 20:37 Temperature 36.2 C L 05/21/25 20:37 Pulse Rate 67 05/21/25 22:30 Respiratory Rate 21 H 05/21/25 22:30 Blood Pressure 103/63 05/21/25 22:30 Pulse Oximetry 94 05/21/25 22:30 Oxygen Delivery Room Air 05/21/25 22:30 MDM - Chest Pain Lab Data 05/21/25 21:10 05/21/25 21:10 Labs: Lab Results 05/21/25 05/21/25 Range/Units 20:52 21:10 WBC 9.2 (4.8-10.8) K/mm3 RBC 5.14 (4.70-6.10) M/mm3 Hgb 16.2 H (12.4-15.3) g/dL Hct 48.2 H (37.0-46.0) % MCV 93.8 (78.0-102.0) fL MCH 31.5 H (27.0-31.0) pg MCHC 33.6 (32-36) g/dL RDW 12.7 (11.6-14.4) % Plt Count 231 (150-420) K/mm3 MPV 9.5 (8.7-11.0) fl Immature Gran % (Auto) 0.9 H (0.0-0.0) % Neut % (Auto) 60.8 (50.0-70.0) % Lymph % (Auto) 25.6 (18.0-42.0) % Cache % (Auto) 8.5 (2.0-11.0) % Eos % (Auto) 3.4 (1.0-6.0) % Baso % (Auto) 0.8 (0.0-1.0) % Lymph # (Auto) 2.36 (1.10-4.50) K/mm3 Cache # (Auto) 0.78 (0.10-0.90) K/mm3 Eos # (Auto) 0.31 (0.02-0.50) K/mm3 Baso # (Auto) 0.07 (0.00-0.10) K/mm3 Abs Immat Gran (auto) 0.08 H (0.00-0.00) K/mm3 Absolute Neuts (auto) 5.62 (1.70-7.20) K/mm3 Absolute Nucleated RBC 0.00 (0.00-0.00) K/mm3 Nucleated RBC % 0.0 (0-0.0) % PT 11.5 (9.50-12.1) Seconds INR 1.0 APTT 38.5 H (23.9-30.70) Sec D-Dimer 0.19 (0.19-0.50) mg/L Sodium 143 (137-145) mmol/L Potassium 4.2 (3.4-5.0) mmol/L Chloride 106 (98-107) mmol/L Carbon Dioxide 25 (22-30) mmol/L Anion Gap 12 (4-12) mmol/L BUN 24 H (9-20) mg/dL Creatinine 1.24 (0.7-1.3) mg/dL Estim Creat Clear Calc 61 ml/min Estimated GFR 58 L (59 - ) Glucose 184 H (65-110) mg/dL POC Capillary Glucose 170 H (65-105) mg/dl Calculated Osmolality 305 H (285-295) mOsm/kg Calcium 10.1 (8.4-10.2) mg/dL Total Bilirubin 0.4 (0.2-1.3) mg/dL AST 36 (17-59) U/L ALT 41 (6-50) U/L Alkaline Phosphatase 68 (38-126) U/L Troponin I < 0.012 (0.000-0.034) ng/mL NT-Pro-B Natriuret Pep 2340 H (19.9-100) pg/mL Total Protein 8.6 H (6.3-8.2) g/dL Albumin 4.5 (3.5-5.1) g/dL Lipase 88 (23-300) U/L Critical Care Time Critical Care Time Critical Care Time: No Discharge Plan Discharge Clinical Impression: Atypical chest pain A-fib Qualifiers: Atrial fibrillation type: unspecified Qualified Code(s): I48.91 - Unspecified atrial fibrillation Patient Disposition: Home Condition: Stable Instructions: Antibiotic Form, A-fib (Atrial Fibrillation) (ED) Additional Instructions: advised patient to continue his current medical regimen and to follow up with electrical tester battery within next 3 to 5 days for further evaluation treatment. Patient Language: Mozambican Prescriptions: No Action tramadol 50 mg tablet 50 mg PO PRN PRN (Reason: Pain) baclofen 20 mg tablet 20 mg PO TID PRN (Reason: pain) Qty: 30 0RF metoprolol tartrate 25 mg tablet 25 mg PO BID Pradaxa 150 mg capsule 150 mg PO DAILY Follow-up/Referrals: Robles Disla MD [Primary Care Provider, Internal Medicine]
--- NOTE | 2025-05-21 23:28 | PC.NURSE ---
DR TRENT AT THE BEDSIDE. CURRENTLY WAITING ON TROP RESULTS.
[2025-05-21 23:50] LABS: Troponin I 0.033 ng/mL (0.000-0.034)
[2025-05-22 00:10] VITALS: BP 116/58; PULSE 71; RESP 18; O2SAT 96
== END 2025-05-22 00:10 | disposition home or self-care (01) ==
PROVIDERS: Emergency Provider Emergency Medicine; PCP Family Medicine
DX: R07.89 Other chest pain (principal); I48.91 Unspecified atrial fibrillation; I50.9 Heart failure, unspecified; F17.290 Nicotine dependence, other tobacco product, uncomplicated
CPT/HCPCS: 36415; 71045; 80053; 82948; 83690; 83880; 84484; 85025; 85380; 85610; 85730; 93005; 96374; 99284; A9270; J1163

== ENCOUNTER 2025-05-23 09:48 | Outpatient (CLI) | payer MEDICARE, MEDICAID, SELFPAY ==
--- NOTE | ~2025-05-23 | XR_ITS ---
EXAMINATION: XR wrist LT min 3V, 05/23/2025 10:00 CDT HISTORY: PAIN IN LEFT WRIST COMPARISON: No comparisons available. Findings: No acute fracture or malalignment. No significant degenerative changes. Soft tissues unremarkable. Impression: No acute fracture or malalignment. Reviewed, dictated and finalized at location A. Impression: No acute fracture or malalignment.
[2025-05-23 10:13] LABS: Hematocrit 49.6 % (37.0-46.0); Hemoglobin 16.8 g/dL (12.4-15.3); Mean Corpuscular HGB Conc 33.9 g/dL (32-36); Mean Corpuscular Hemoglobin 32.2 pg (27.0-31.0); Mean Corpuscular Volume 95.2 fL (78.0-102.0); Platelet Count Result 247 K/mm3 (150-420); Red Blood Count 5.21 M/mm3 (4.70-6.10); White Blood Count 7.4 K/mm3 (4.8-10.8)
[2025-05-23 10:39] LABS: Alanine Aminotransferase 44 U/L (6-50); Albumin Level 4.6 g/dL (3.5-5.1); Alkaline Phosphatase 62 U/L (38-126); Anion Gap 10 mmol/L (4-12); Aspartate Amino Transferase 41 U/L (17-59); Bilirubin,Total 0.8 mg/dL (0.2-1.3); Blood Urea Nitrogen 22 mg/dL (9-20); Calcium 9.9 mg/dL (8.4-10.2); Carbon Dioxide 25 mmol/L (22-30); Chloride 107 mmol/L (98-107); Creatine Kinase 68 U/L (55-170); Estimated Glomerular Filt Rate > 60; Glucose 123 mg/dL (65-110); Osmolality Calculated 298 mOsm/kg (285-295); Potassium 4.9 mmol/L (3.4-5.0); Sodium 142 mmol/L (137-145); Total Protein 9.1 g/dL (6.3-8.2)
[2025-05-23 10:51] LABS: NT Pro B Type Natriuretic Pept 2510 pg/mL (19.9-100); Troponin I < 0.012 ng/mL (0.000-0.034)
--- OUTSIDE RECORDS SUMMARY | 2025-05-23 10:52 | XMS_ITS | Clinical Summary ---
Author Organization [facility] Address [address] [place] [address] Care Team Providers Care Furnace Door Tender Name Role Phone Robles Disla MD Primary Care Provider [phone] Source Comments [facility],non-owned Affiliates and Associated Physician Practices is amultiple site organization consisting of ambulatory clinics and hospital sitesin [place], [place], [place] and [place]. This disclosure is being madepursuant to the Care Everywhere program and may not contain all information available regarding this patient. Last updated 18.[facility] [employer] Allergies Active Allergy Reactions Criticality Noted Date [...] needed for Anxiety or Agitation 15 capsule 1 Active Active Problems Problem Noted Date Diagnosed Date Alcohol-induced acute pancreatitis 05/26/2021 Abdominal pain, RUQ (right upper quadrant) 05/26 Elevated liver enzymes Coagulopathy Social History Tobacco Use Types Packs/Day Years Used Date Smoking Tobacco: Former Cigarettes 1 30 1 4 - 2013 Smokeless Tobacco: Never Alcohol Use [...] 8:10 AM CDT Oxygen Saturation 93% 07/05/2021 8:10 AM CDT Inhaled Oxygen Concentration - - [...] (1 of 2) 2008 AAA SCREENING 2023 SCREENING FOR DIABETES 05/30/2024 , 05/29/2021, 05/28/2021, Additional history exists DEPRESSION SCREENING 09/01/2024 COVID-19 VACCINE ( season) 2025 INFLUENZA VACCINE (#1) 2025 Respiratory Syncytial Virus [...] this topic Medical Devices Implanted Type Area Custodian Device Identifier Shelf Expiration Date Model / Serial / Lot Stent Biliary 10fr 5cm Ddnl Bnd Preld Implanted:Qty: 1 on 05/28/2021 by Gary Timmons MD at [facility] [employer] [facility] 02/27/2023 [id number] / / [id number] Procedures Procedure Name Priority Date/Time Associated Diagnosis Comments COMPREHENSIVE METABOLIC PANEL AM Draw 05/30/2021 5:16 AM CDT HEPATITIS C ANTIBODY Routine 05/27/2021 12:15 AM CDT from Last 3 Months or Most Recently Relevant to Health Maintenance Results * (ABNORMAL) COMPREHENSIVE METABOLIC PANEL (05/30/2021 5:16 AM CDT) Pathologist [facility] Glucose 98 70 - 105 mg/dL 05/30/2021 6:08 AM CDT [facility] Sodium 141 136 - 145 mmol/L 05/30/2021 6:08 AM CDT [facility] Potassium 3.7 3.5 - 5.1 mmol/L 05/30/2021 6:08 AM CDT [facility] Chloride 109(H) 98 - 107 mmol/L 05/30/2021 6:08 AM CDT [facility] CO2 23 23 - 31 mmol/L 05/30/2021 6:08 AM T -[facility] Calcium 8.7 8.4 - 10.4 mg/dL 05/30/2021 6:08 AM T [facility] Anion Gap 9 8 - 18 mmol/L 05/30/2021 6:08 AM T [facility] BUN 11 8.4 - 25.7 mg/dL 05/30/2021 6:08 AM T -[facility] Creatinine 0.80 0.72 - 1.25 mg/dL 05/30/2021 6:08 AM T -[facility] Alkaline Phosphatase 146 40 - 150 U/L 05/30/2021 6:08 AM T -[facility] ALT 356(H) 0 - 61 U/L 05/30/2021 6:08 AM T -[facility] AST 121(H) 5 - 34 U/L 05/30/2021 6:08 AM T -[facility] Protein Total 6.0(L) 6.4 - 8.3 gm/dL 05/30/2021 6:08 AM T -[facility] Albumin 3.1(L) 3.2 - 4.6 gm/dL 05/30/2021 6:08 AM T -[facility] Bilirubin Total 1.5(H) 0.2 - 1.2 mg/dL 05/30/2021 6:08 AM T -[facility] eGFR by MDRD >60 >60 mL/min/1.7 3m2 05/30/2021 6:08 AM T -[facility] eGFR by MDRD >60 >60 mL/min/1.7 3m2 05/30/2021 6:08 AM T -[facility] Blood BLOOD SPECIMEN / Unknown Lab Venipuncture / Unknown 05/30/2021 5:16 AM CDT 05/30/2021 5:42 AM CDT us Zafar Horn MD LAB - CHEMISTRY ORDERABLES Fin al Result [facility] [address] [place] [address] * HEPATITIS C ANTIBODY (05/27/2021 12:15 AM CDT) HCV Antibody Screen Non Reactive Non Reactive 05/27/2021 7:23 PM CDT [facility] Blood BLOOD SPECIMEN / Unknown Lab Venipuncture / Unknown 05/27/2021 12:15 AM CDT 05/27/2021 12:17 AM CDT Narrative [facility] - 05/27/2021 7:23 PM CDT Non Reactive - Antibodies to Hepatitis C virus (HCV) were not detected, result does not exclude early acute HCV infection. Davion Mcguire MD LAB - CHEMISTRY ORDERABLES Final Result [facility] [address] [place] [address] from Last 3 Months or Most Recently Relevant to Health Maintenance Insurance [facility] MEDICAID Advance Directives * Full Code (Latest Code Status on File) Date Activated Date Inactivated Comments 05/27/2021 12:06 AM 05/30/2021 12:06 PM Care Teams Furnace Door Tender Relationship Specialty Start Date End Date Robles Disla MD [address] [place] [phone] PCP - General Family Medicine 05/26/21
--- OUTSIDE RECORDS SUMMARY | 2025-05-23 10:53 | XMS_ITS | Clinical Summary ---
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
== END 2025-05-23 09:49 | disposition home or self-care (01) ==
LOC: CHSLAB 09:51
PROVIDERS: PCP Family Medicine; Visit Provider Family Medicine
DX: M25.532 Pain in left wrist (principal); I50.9 Heart failure, unspecified; I48.91 Unspecified atrial fibrillation
CPT/HCPCS: 36415; 73110; 80053; 82550; 82553; 83880; 84484; 85027

== ENCOUNTER 2025-06-29 10:41 | Outpatient (CLI) | payer MEDICARE, SELFPAY ==
[2025-06-29 10:54] LABS: Hematocrit 49.2 % (37.0-46.0); Hemoglobin 16.1 g/dL (12.4-15.3); Immature Granulocyte Percent A 0.7 % (0.0-0.0); Lymphocytes Absolute Auto 1.38 K/mm3 (1.10-4.50); Mean Corpuscular HGB Conc 32.7 g/dL (32-36); Mean Corpuscular Hemoglobin 31.7 pg (27.0-31.0); Mean Corpuscular Volume 96.9 fL (78.0-102.0); Nucleated Red Blood Cells Absolute Auto 0.00 K/mm3 (0.00-0.00); Nucleated Red Blood Cells Perc 0.0 % (0-0.0); Platelet Count Result 242 K/mm3 (150-420); Red Blood Count 5.08 M/mm3 (4.70-6.10); White Blood Count 7.1 K/mm3 (4.8-10.8)
[2025-06-29 11:09] LABS: Alanine Aminotransferase 36 U/L (6-50); Albumin Level 4.8 g/dL (3.5-5.1); Alkaline Phosphatase 60 U/L (38-126); Anion Gap 8 mmol/L (4-12); Aspartate Amino Transferase 32 U/L (17-59); Bilirubin,Total 0.8 mg/dL (0.2-1.3); Blood Urea Nitrogen 16 mg/dL (9-20); Calcium 10.0 mg/dL (8.4-10.2); Carbon Dioxide 28 mmol/L (22-30); Chloride 105 mmol/L (98-107); Creatine Kinase 53 U/L (55-170); Estimated Glomerular Filt Rate 58; Glucose 119 mg/dL (65-110); Osmolality Calculated 294 mOsm/kg (285-295); Potassium 4.9 mmol/L (3.4-5.0); Sodium 141 mmol/L (137-145); Total Protein 9.4 g/dL (6.3-8.2)
[2025-06-29 11:21] LABS: NT Pro B Type Natriuretic Pept 922 pg/mL (19.9-100); Troponin I < 0.012 ng/mL (0.000-0.034)
--- OUTSIDE RECORDS SUMMARY | 2025-06-29 12:08 | XMS_ITS | Clinical Summary ---
Author Organization [facility] Address [address] [place] [address] Care Team Providers Care Hair Worker Name Role Phone Robles Disla MD Primary Care Provider [phone] Source Comments [facility],non-owned Affiliates and Associated Physician Practices is amultiple site organization consisting of ambulatory clinics and hospital sitesin [place], [place], [place] and [place]. This disclosure is being madepursuant to the Care Everywhere program and may not contain all information available regarding this patient. Last updated 18.[facility] [employer] Allergies Active Allergy Reactions Criticality Noted Date [...] this topic Medical Devices Implanted Type Area Chip Silo Tender Device Identifier Shelf Expiration Date Model / Serial / Lot Stent Biliary 10fr 5cm Ddnl Bnd Preld Implanted:Qty: 1 on 05/28/2021 by Gary Timmons MD at [facility] Bile Duct AIM [facility] 02/27/2023 [id number] / / [id number] Procedures Procedure Name Priority Date/Time Associated Diagnosis Comments COMPREHENSIVE METABOLIC PANEL AM Draw 05/30/2021 5:16 AM CDT HEPATITIS C ANTIBODY Routine 05/27/2021 12:15 AM CDT from Last 3 Months or Most Recently Relevant to Health Maintenance Results * (ABNORMAL) COMPREHENSIVE METABOLIC PANEL (05/30/2021 5:16 AM CDT) Pathologist [facility] Glucose 98 70 - 105 mg/dL 05/30/2021 6:08 AM CDT [facility] Sodium 141 136 - 145 mmol/L 05/30/2021 6:08 AM CDT [facility] Potassium 3.7 3.5 - 5.1 mmol/L 05/30/2021 6:08 AM CDT [facility] Chloride 109(H) 98 - 107 mmol/L 05/30/2021 6:08 AM CDT [facility] CO2 23 23 - 31 mmol/L 05/30/2021 6:08 AM [facility] Calcium 8.7 8.4 - 10.4 mg/dL 05/30/2021 6:08 AM [facility] Anion Gap 9 8 - 18 mmol/L 05/30/2021 6:08 AM [facility] BUN 11 8.4 - 25.7 mg/dL 05/30/2021 6:08 AM [facility] Creatinine 0.80 0.72 - 1.25 mg/dL 05/30/2021 6:08 AM [facility] Alkaline Phosphatase 146 40 - 150 U/L 05/30/2021 6:08 AM [facility] ALT 356(H) 0 - 61 U/L 05/30/2021 6:08 AM [facility] AST 121(H) 5 - 34 U/L 05/30/2021 6:08 AM [facility] Protein Total 6.0(L) 6.4 - 8.3 gm/dL 05/30/2021 6:08 AM [facility] Albumin 3.1(L) 3.2 - 4.6 gm/dL 05/30/2021 6:08 AM [facility] Bilirubin Total 1.5(H) 0.2 - 1.2 mg/dL 05/30/2021 6:08 AM [facility] eGFR by MDRD >60 >60 mL/min/1.7 3m2 05/30/2021 6:08 AM [facility] eGFR by MDRD >60 >60 mL/min/1.7 3m2 05/30/2021 6:08 AM [facility] Blood BLOOD SPECIMEN / Unknown Lab Venipuncture / Unknown 05/30/2021 5:16 AM CDT 05/30/2021 5:42 AM CDT us Zafar Horn MD LAB - CHEMISTRY ORDERABLES Fin al Result [facility] [address] [place] [address] * HEPATITIS C ANTIBODY (05/27/2021 12:15 AM CDT) HCV Antibody Screen Non Reactive Non Reactive 05/27/2021 7:23 PM CDT [facility] Blood BLOOD SPECIMEN / Unknown Lab Venipuncture / Unknown 05/27/2021 12:15 AM CDT 05/27/2021 12:17 AM CDT Narrative [facility] - 05/27/2021 7:23 PM CDT Non Reactive - Antibodies to Hepatitis C virus (HCV) were not detected, result does not exclude early acute HCV infection. Davion Mcguire MD LAB - CHEMISTRY ORDERABLES Final Result [facility] [address] [place] [address] from Last 3 Months or Most Recently Relevant to Health Maintenance Insurance [facility] MEDICAID Advance Directives * Full Code (Latest Code Status on File) Date Activated Date Inactivated Comments 05/27/2021 12:06 AM 05/30/2021 12:06 PM Care Teams Hair Worker Relationship Specialty Start Date End Date Robles Disla MD [address] [place] [address] [phone] PCP - General Family Medicine 05/26/21
== END 2025-06-29 10:42 | disposition home or self-care (01) ==
LOC: CHSLAB 10:42
PROVIDERS: PCP Family Medicine; Visit Provider Family Medicine
DX: I48.91 Unspecified atrial fibrillation (principal); I11.0 Hypertensive heart disease with heart failure; I50.9 Heart failure, unspecified
CPT/HCPCS: 36415; 80053; 82550; 82553; 83880; 84484; 85025